=== PATIENT | male | born 1960 | race Caucasian/White ===

== ENCOUNTER 2016-11-16 07:13 | Outpatient (CLI) | payer OTHER | END 2016-11-16 07:14 | disposition home or self-care (01) | DX: C61 Malignant neoplasm of prostate (principal) ==

== ENCOUNTER 2017-03-02 11:19 | Outpatient (CLI) | payer OTHER ==
[2017-03-02 18:47] LABS: BASOPHILS # (AUTO) 0.1 10^3/uL (0.0-0.1); BASOPHILS % (AUTO) 0.8 %; EOSINOPHILS # (AUTO) 0.2 10^3/uL (0.0-0.7); HCT - HEMATOCRIT 47.8 % (42.0-52.0); HGB - HEMOGLOBIN 15.8 g/dL (14.0-18.0); LYMPHOCYTES # (AUTO) 3.2 10^3/uL (1.5-3.5); LYMPHOCYTES % (AUTO) 39.8 %; MEAN CORPUSCULAR HEMOGLOBIN 29.8 pg (27.0-31.0); MEAN CORPUSCULAR VOLUME 90.3 fL (80.0-94.0); MEAN PLATELET VOLUME 8.6 fL (7.4-11.4); MONOCYTES # (AUTO) 0.6 10^3/uL (0.0-1.0); MONOCYTES % (AUTO) 7.4 %; NEUTROPHILS # (AUTO) 3.9 10^3/uL (1.5-6.6); RED CELL DISTRIBUTION WIDTH 13.3 % (12.0-15.0)
[2017-03-02 19:10] LABS: ALBUMIN/GLOBULIN RATIO 1.3 (1.0-2.2); BILIRUBIN,TOTAL 0.5 mg/dL (0.2-1.0); BUN - BLOOD UREA NITROGEN 18 mg/dL (6-20); CALCIUM 8.9 mg/dL (8.5-10.3); CARBON DIOXIDE - CO2 25 mmol/L (21-32); CHLORIDE 106 mmol/L (101-111); CREATININE 0.7 mg/dL (0.6-1.2); GFR - MDRD 116 (>89); GLUCOSE 104 mg/dL (70-100); POTASSIUM 3.9 mmol/L (3.5-5.0); SODIUM 139 mmol/L (135-145); TOTAL PROTEIN 7.9 g/dL (6.7-8.2)
== END 2017-03-02 11:20 | disposition home or self-care (01) ==
LOC: LAB.F 11:19
PROVIDERS: ATTEND Internal Medicine
DX: F41.9 Anxiety disorder, unspecified (principal)
CPT/HCPCS: 36415; 80053; 82306; 84443; 85025

== ENCOUNTER 2017-04-05 07:26 | Outpatient (CLI) | payer OTHER | END 2017-04-05 07:27 | disposition home or self-care (01) | LOC: LAB.F 07:26 | PROVIDERS: ATTEND Internal Medicine | DX: C61 Malignant neoplasm of prostate (principal) | CPT/HCPCS: 36415; 84153 ==

== ENCOUNTER 2017-07-25 07:13 | Outpatient (CLI) | payer OTHER ==
[2017-07-25 10:51] LABS: PSA FREE 0.34 ng/mL (0.16-2.81)
[2017-07-25 10:53] LABS: PSA TOTAL 5.36 ng/mL (0.000-2.000)
== END 2017-07-25 07:14 | disposition home or self-care (01) ==
LOC: LAB.F 07:13
PROVIDERS: ATTEND Family Medicine
DX: C61 Malignant neoplasm of prostate (principal)
CPT/HCPCS: 36415; 84153; 84154

== ENCOUNTER 2017-10-31 11:23 | Outpatient (CLI) | payer OTHER ==
[2017-10-31 18:36] LABS: PSA FREE 0.53 ng/mL (0.16-2.81)
[2017-10-31 18:37] LABS: PSA TOTAL 8.93 ng/mL (0.000-2.000)
== END 2017-10-31 11:24 | disposition home or self-care (01) ==
LOC: LAB.F 11:23
PROVIDERS: ATTEND Family Medicine
DX: C61 Malignant neoplasm of prostate (principal)
CPT/HCPCS: 36415; 84154

== ENCOUNTER 2017-10-31 18:55 | Outpatient (CLI) | payer OTHER ==
--- NOTE | 2017-11-01 12:16 | XRAY Report ---
BILATERAL KNEES: 10/31/2017 COMPARISON STUDY: Left knee 07/14/2016. INDICATION: Bilateral knee pain. TECHNIQUE: Three views of each knee. FINDINGS: Normal alignment. No evidence of acute fracture. No effusion. No degenerative changes. IMPRESSION: NEGATIVE KNEES. TD: 11/01/2017 12:15 MTDD
== END 2017-10-31 18:56 | disposition home or self-care (01) ==
LOC: DI 18:55
PROVIDERS: ATTEND Family Medicine
DX: M25.561 Pain in right knee (principal); M25.562 Pain in left knee; C61 Malignant neoplasm of prostate
CPT/HCPCS: 36415; 73565; 84154

== ENCOUNTER 2018-01-06 11:47 | Outpatient (CLI) | payer OTHER | END 2018-01-06 11:48 | disposition home or self-care (01) | LOC: LAB 11:47 | PROVIDERS: ATTEND Urology | DX: C61 Malignant neoplasm of prostate (principal) | CPT/HCPCS: 36415; 84153 ==

== ENCOUNTER 2018-01-20 08:48 | Inpatient (IN) | payer OTHER ==
[2018-01-20] MEDS ORDERED: SODIUM CHLORIDE 0.9% 1,000 ML IV ONE (09:14)
--- NOTE | 2018-01-20 09:16 | ED Physician Documentation ---
History of Present Illness - Stated complaint Stated Complaint: FEVER/ACHES/LOW APPETITE - Chief complaint Chief Complaint: Fever - History obtained from History obtained from: Patient, Family - History of Present Illness Timing: How many days ago (3) - Additonal information Additional information: 57-year-old male has had a repeat biopsy done of his prostate at [facility] 4 days ago. He developed a fever the following day and chills and he has been in bed since. He has had some nausea he has not had any vomiting he has not had any diarrhea. He has been drinking less fluids than he was instructed. He has aches and all of his muscles. Review of Systems Constitutional: reports: Fever, Chills, Myalgias, Fatigue, Sweats Eyes: denies: Decreased vision Ears: denies: Ear pain Nose: denies: Rhinorrhea / runny nose, Congestion Throat: denies: Sore throat Cardiac: denies: Chest pain / pressure Respiratory: denies: Dyspnea, Cough GI: reports: Nausea. denies: Abdominal Pain, Vomiting, Diarrhea : denies: Dysuria, Frequency Skin: denies: Rash Musculoskeletal: denies: Neck pain, Back pain, Extremity pain PD PAST MEDICAL HISTORY - Past Medical History Cardiovascular: Hypertension Respiratory: None Endocrine/Autoimmune: None Musculoskeletal: Osteoarthritis - Present Medications Home Medications: Ambulatory Orders Medication Instructions Recorded Confirmed Cholecalciferol (Vitamin D3) 2,000 unit PO DAILY 01/20/18 01/20/18 [Vitamin D] Metoprolol Tartrate [Metoprolol 25 mg PO BID 01/20/18 01/20/18 Tartrate] Tamsulosin [Flomax] 0.4 mg PO BID 01/20/18 01/20/18 - Allergies Allergies/Adverse Reactions: Allergies Allergy/AdvReac Type Severity Reaction Status Date / Time No Known Drug Allergies Allergy Verified 01/20/18 09:01 PD ED PE NORMAL - Vitals Vital signs reviewed: Yes (tachy and hypertensive) - General General: Alert and oriented X 3, No acute distress, Well developed/nourished - HEENT HEENT: Atraumatic, PERRL, EOMI - Neck Neck: Supple, no meningeal sign - Cardiac Cardiac: No murmur, Other (tachy to 120) - Respiratory Respiratory: No respiratory distress, Clear bilaterally - Abdomen Abdomen: Soft, Non tender - Back Back: No CVA TTP, No spinal TTP - Derm Derm: Normal color, Warm and dry, No rash - Extremities Extremities: No deformity, No edema - Neuro Neuro: No motor deficit, No sensory deficit Eye Opening: Spontaneous Motor: Obeys Commands Verbal: Oriented GCS Score: 15 - Psych Psych: Normal mood, Normal affect Results - Vitals Vitals: Vital Signs - 24 hr 01/20/18 01/20/18 01/20/18 08:57 10:50 10:54 Temperature 36.6 C 37.4 C Heart Rate 119 H 103 H Respiratory 16 19 Rate Blood Pressure 142/87 H 98/53 L O2 Saturation 96 95 Oxygen O2 Source Room air - Labs Labs: Laboratory Tests 01/20/18 01/20/18 01/20/18 09:15 09:15 09:15 WBC 7.5 RBC 5.48 Hgb 16.4 Hct 47.7 MCV 86.9 MCH 29.9 MCHC 34.4 RDW 13.7 Plt Count 125 L MPV 6.9 L Neut # (Auto) 7.2 H Lymph # (Auto) 0.2 L Dent # (Auto) 0.1 Eos # (Auto) 0.0 Baso # (Auto) 0.0 Absolute Nucleated RBC 0.00 Nucleated RBC % 0.1 Sodium 130 L Potassium 3.2 L Chloride 99 L Carbon Dioxide 21 Anion Gap 10.0 BUN 13 Creatinine 1.1 Estimated GFR (MDRD) 69 L Glucose 139 H Lactic Acid Calcium 8.6 Total Bilirubin 1.9 H AST 91 H ALT 118 H Alkaline Phosphatase 102 Total Creatine Kinase CK-MB (CK-2) Troponin I < 0.04 Total Protein 8.5 H Albumin 4.1 Globulin 4.4 H Albumin/Globulin Ratio 0.9 L Lipase 20 L Urine Color Urine Clarity Urine pH Ur Specific [place] Urine Protein Urine Glucose (UA) Urine Ketones Urine Occult Blood Urine Nitrite Urine Bilirubin Urine Urobilinogen Ur Leukocyte Esterase Urine RBC Urine WBC Ur Squamous Epith Cells Urine Bacteria Urine Casts Ur Microscopic Review Urine Culture Comments 01/20/18 01/20/18 01/20/18 09:15 09:15 09:15 WBC RBC Hgb Hct MCV MCH MCHC RDW Plt Count MPV Neut # (Auto) Lymph # (Auto) Dent # (Auto) Eos # (Auto) Baso # (Auto) Absolute Nucleated RBC Nucleated RBC % Sodium Potassium Chloride Carbon Dioxide Anion Gap BUN Creatinine Estimated GFR (MDRD) Glucose Lactic Acid 1.7 Calcium Total Bilirubin AST ALT Alkaline Phosphatase Total Creatine Kinase 389 H CK-MB (CK-2) 1.1 Troponin I Total Protein Albumin Globulin Albumin/Globulin Ratio Lipase Urine Color Urine Clarity Urine pH Ur Specific [place] Urine Protein Urine Glucose (UA) Urine Ketones Urine Occult Blood Urine Nitrite Urine Bilirubin Urine Urobilinogen Ur Leukocyte Esterase Urine RBC Urine WBC Ur Squamous Epith Cells Urine Bacteria Urine Casts Ur Microscopic Review Urine Culture Comments 01/20/18 11:20 WBC RBC Hgb Hct MCV MCH MCHC RDW Plt Count MPV Neut # (Auto) Lymph # (Auto) Dent # (Auto) Eos # (Auto) Baso # (Auto) Absolute Nucleated RBC Nucleated RBC % Sodium Potassium Chloride Carbon Dioxide Anion Gap BUN Creatinine Estimated GFR (MDRD) Glucose Lactic Acid Calcium Total Bilirubin AST ALT Alkaline Phosphatase Total Creatine Kinase CK-MB (CK-2) Troponin I Total Protein Albumin Globulin Albumin/Globulin Ratio Lipase Urine Color DARK YELLOW Urine Clarity CLOUDY Urine pH 5.5 Ur Specific [place] >=1.030 H Urine Protein >=300 Urine Glucose (UA) 100 H Urine Ketones TRACE Urine Occult Blood LARGE H Urine Nitrite NEGATIVE Urine Bilirubin NEGATIVE Urine Urobilinogen 2 H Ur Leukocyte Esterase TRACE H Urine RBC 6-10 H Urine WBC 11-25 H Ur Squamous Epith Cells RARE Squamous Urine Bacteria Few Urine Casts 0-2 Granular Casts Ur Microscopic Review INDICATED Urine Culture Comments INDICATED Procedures - IVC sono (time) 0905 Bedside IVC sono: IVC measures (cm) (1.02), IVC collapsed c insp (cm) (complete) , Low CVP, Dehydration (est 1-2 liter deficit) PD MEDICAL DECISION MAKING - ED course Complexity details: reviewed old records, reviewed results, re-evaluated patient , considered differential, d/w patient, d/w family ED course: 57 y/o male with prostate cancer has had a recent biopsy and now has fever, chills, sweats and myalgias. He is tachy and appears weak on initial exam. He is volume depleted and saline is begun. Levaquin is given IV as well. The patient appears ill with SIRS criteria with tachycardia and hypotension and admission is sought. His LFT's are elevated and have not been so previously. He has had shaking chills and CK is added on. He is not tender in the RUQ on exam. The CK is mildly elevated consistent with his rigors and I suspect this is the reason for elevation in LFT's. Departure - Departure Disposition: 66 [facility] DC/Xfer Clinical Impression: Septicemia Urinary tract infection Qualifiers: Urinary tract infection type: site unspecified Hematuria presence: with hematuria Qualified Code(s): N39.0 - Urinary tract infection, site not specified Condition: Serious Discharge Date/Time: 01/20/18 14:24
[2018-01-20] MEDS ORDERED: levoFLOXacin 750 MG/150 ML 750 MG/150 ML BAG IV STA (09:28)
[2018-01-20] MEDS ORDERED: KETOROLAC 60 MG/2 ML VIAL IVP STA (09:29)
[2018-01-20 09:31] LABS: BASOPHILS % (AUTO) 0.3 %; HGB - HEMOGLOBIN 16.4 g/dL (14.0-18.0); LYMPHOCYTES # (AUTO) 0.2 10^3/uL (1.5-3.5); MEAN CORPUSCULAR HEMOGLOBIN 29.9 pg (27.0-31.0); MEAN CORPUSCULAR HGB CONC 34.4 g/dL (32.0-36.0); MEAN CORPUSCULAR VOLUME 86.9 fL (80.0-94.0); MEAN PLATELET VOLUME 6.9 fL (7.4-11.4); MONOCYTES # (AUTO) 0.1 10^3/uL (0.0-1.0); NEUTROPHILS # (AUTO) 7.2 10^3/uL (1.5-6.6); NEUTROPHILS % (AUTO) 96.7 %; PLT - PLATELET COUNT 125 10^3/uL (130-450); RED BLOOD COUNT 5.48 10^6/uL (4.70-6.10); RED CELL DISTRIBUTION WIDTH 13.7 % (12.0-15.0); WHITE BLOOD COUNT 7.5 x10^3/uL (4.8-10.8)
[2018-01-20 09:53] LABS: ALBUMIN 4.1 g/dL (3.2-5.5); ALBUMIN/GLOBULIN RATIO 0.9 (1.0-2.2); BILIRUBIN,TOTAL 1.9 mg/dL (0.2-1.0); CALCIUM 8.6 mg/dL (8.5-10.3); CREATININE 1.1 mg/dL (0.6-1.2); TOTAL PROTEIN 8.5 g/dL (6.7-8.2)
[2018-01-20] MEDS ORDERED: POTASSIUM BICARB 25 MEQ TABLET PO STA (09:57)
[2018-01-20 11:40] LABS: GLUCOSE, URINE (UA) 100 mg/dL (NEGATIVE); KETONES,URINE (UA) TRACE mg/dL (NEGATIVE); LEUKOCYTE ESTERASE, URINE TRACE (NEGATIVE); NITRITE,URINE NEGATIVE (NEGATIVE); OCCULT BLOOD,URINE LARGE (NEGATIVE); PH,URINE 5.5 PH (5.0-7.5); PROTEIN,URINE >=300 mg/dL (NEGATIVE); UROBILINOGEN,URINE 2 E.U./dL (NORMAL)
[2018-01-20 11:45] LABS: BILIRUBIN,URINE NEGATIVE (NEGATIVE); CLARITY,URINE CLOUDY (CLEAR); ICTOTEST,URINE NEGATIVE
[2018-01-20 11:56] LABS: BACTERIA,URINE Few /HPF (None Seen); CASTS, URINE 0-2 Granular Casts /LPF; SQUAMOUS EPITHELIAL CELL,UR RARE Squamous (<= Few)
[2018-01-20] MEDS ORDERED: ONDANSETRON ODT 4 MG TABLET TL PRN (12:25)
[2018-01-20] MEDS ORDERED: ONDANSETRON 4 MG/2 ML VIAL IVP PRN (12:25)
--- NOTE | 2018-01-20 12:34 | HISTORY & PHYSICAL EXAMINATION ---
Chief Complaint - Chief Complaint Chief Complaint: Fever and chills with rigors as well as N/V History of Present Illness - Admitted From Admitted From:: ER/HOme - History Obtained From [facility] History obtained from: patient and Dr. Hale Exam Limitations: none - History of Present Illness HPI Comment/Other: He had a rising PSA and ended up having a prostate biopsy at [facility] this week. Since that time he has started to feel badly. In the last few days he has had alessandro fever, chills, rigors. No bloody stool. No urgency frequency or dysuria. Nausea resulted in sharply reduced food and fluid intake. He asked his PCP for pain meds and antibiotics and was told to take some tylenol and see how he felt. He came to the emergency room where he is afebrile but tachycardic and blood pressure is starting to drop. He was initially in the 1teens and now he is 90 systolic. Lab work shows him to have an elevated white cell count. Elevated liver enzymes. Elevated white cell count and a positive urine with regards to infection. There is no abdominal complaints with this. Dr. Hale states there is no right upper quadrant pain. He is now admitted for sepsis, most likely from urologic source and possibly prostate History - Past Medical History Cardiovascular: reports: Hypertension Respiratory: reports: None Neuro: reports: None Endocrine/Autoimmune: reports: None GI: reports: None : reports: Other (organic erectile dysfunction. Prostate cancer is "being watched" after a diagnosis and biopsy in 2014. Repeat 10/2015 shows mamta 3+3 of 1/2 cores in right apex. AUA score is 13/35. PSA this last month was >5. Went for prostate biopsy again earlier this week. ) Psych: reports: Anxiety Musculoskeletal: reports: Osteoarthritis, Other (left medial meniscus tear hx, patellorfemoral disorder, right lateral epicondylitis, left shoulder pain) Derm: reports: Other (lipoma left chest wall) Other Past Medical History: Diagnosed with prostate cancer. - Past Surgical History /[employer]: reports: Other (prostate biopsy x 3. ) - Family & Social History Family History Comment/Other: His mom at age 72 after a stroke. Dad at age 76 after getting infection in his leg, and having it cut off but he still anyway. 2 brothers still live in [facility] and he has not seen him in decade so he does know how they are. He has 1 child in [place] is healthy Living arrangement: At home Living Situation: With spouse/s.o. Social History Notes: From [place]. He lived in [facility]. Has been in the [place] for 19 years. He came over because the economy was bad and he was never able to get work. 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 He was laid off 2 months ago because work was slow. He has been living here on [facility] for the last 12 years.Speaks only Wallisian. Former smoker who quit in 2009 and started in 1972. No hx of alcohol abuse. Lately his knee and shoulder pain make it difficult to go up and down stairs all the time. No hx of recreational substance abuse. He is from his first . He had one child with her. They still live in [place]. He has been to his second for 8 years. They have no children. - Substance History Use: Uses substance without health or social issues: NONE Abuse: Recurrent use of substance despite neg consequences: NONE Dependence: Experiences withdrawal or developed tolerances: NONE - POLST Patient has POLST: No POLST Status: Full Code Meds/Allgy - Home Medications Home Medications: Ambulatory Orders Medication Instructions Recorded Confirmed Cholecalciferol (Vitamin D3) 2,000 unit PO DAILY 01/20/18 01/20/18 [Vitamin D] Metoprolol Tartrate [Metoprolol 25 mg PO BID 01/20/18 01/20/18 Tartrate] Tamsulosin [Flomax] 0.4 mg PO BID 01/20/18 01/20/18 - Allergies Allergies/Adverse Reactions: Allergies Allergy/AdvReac Type Severity Reaction Status Date / Time No Known Drug Allergies Allergy Verified 01/20/18 09:01 Review of Systems - Constitutional Constitutional: reports: Fatigue, Fever, Chills, Malaise, Weakness, Poor appetite - Eyes Eyes: denies: Pain, Irritation, Amaurosis, Blurred vision, Field loss - Ears, Nose & Throat Ears, Nose & Throat: denies: Ear pain, Hearing loss, Hearing aids, Nasal obstruction, Nasal congestion, Postnasal drainage, Sore throat - Cardiovascular Cariovascular: denies: Palpitations, Chest pain, Lightheadedness, Syncope, Exertional dyspnea, Decr. exercise tolerance - Respiratory Respiratory: denies: Cough, Sputum production, Wheezing, Hemoptysis, SOB at rest , SOB with exertion - Gastrointestinal Gastrointestinal: denies: Abdominal pain, Abdominal distention, Constipation, Change in bowel habits - Musculoskeletal Musculoskeletal: reports: Joint pain (especially in knees, chronic) - Integumentary Integumentary: reports: Lumps (left chest wall). denies: Rash, Lesions - Neurological Neurological: reports: General weakness, Headache, Dizziness. denies: Focal weakness, Numbness, Memory problems - Psychiatric Psychiatric: reports: Anxiety. denies: Depression - Endocrine Endocrine: denies: Polyuria, Polydypsia, Polyphagia - Hematologic/Lymphatic Hematologic/Lymphatic: denies: Anemia, Bruising, Petechiae Exam - Vital Signs Reviewed Vital Signs: Yes Vital Signs: Vital Signs x48h Temp Pulse Resp BP Pulse Ox 01/20/18 10:54 98/53 L 01/20/18 10:50 37.4 C 103 H 19 95 01/20/18 08:57 36.6 C 119 H 16 142/87 H 96 - Physical Exam General Appearance: positive: No acute distress, Alert, Other (middle aged male with long salt and pepper hair and sow.) Eyes Bilateral: positive: PERRL, EOMI ENT: positive: Dry mucous membranes Neck: positive: No JVD. negative: Stiff neck, Carotid bruit Respiratory: positive: Chest non-tender. negative: Wheezes, Rales, Rhonchi Cardiovascular: positive: Regular rate & rhythm. negative: Systolic murmur, Gallop/S4, Friction rub Peripheral Pulses: positive: 2+ Abdomen: positive: Non-tender, No organomegaly, Nml bowel sounds, No distention Skin: positive: Warm, Dry. negative: Diaphoresis Extremities: positive: Non-tender, Full ROM, No pedal edema Neurologic/Psychiatric: positive: Oriented x3, CN's nml (2-12), Motor nml Conclusion/Plan - Problem List (1) Sepsis associated hypotension Conclusion/Plan: mosts likely source is the prostate and recent biopsy but the abnormal LFTs do give pause. Exam neg for cholecystitis Plan: Admit to inpatient status 3 liters of NS at 200 cc/hr Check lactic acid q3 x 3 Continue levaquin started in ER. Review blood and urine cultures and adjust abx as needed See #3. (2) Urinary tract infection Conclusion/Plan: from prostatitis and biopsy. has a hx of prostate cancer. Plan: levaquin IV continue flomax. Qualifiers: Urinary tract infection type: site unspecified Hematuria presence: with hematuria Qualified Code(s): N39.0 - Urinary tract infection, site not specified; R31.9 - Hematuria, unspecified; R31.9 - Hematuria, unspecified (3) Abnormal LFTs (liver function tests) Conclusion/Plan: check hepatitis panel check US of abd (4) Essential (primary) hypertension Conclusion/Plan: hold his ususal home meds of metoprolol for now. he's hypotensive. will resume once BP stable but will keep in mind he may develop rebound tachycardia off the meds. (5) Hypokalemia Conclusion/Plan: and hyponatremia from from intravascular depletion. Supplement w po K and IV NS. recheck in am. (6) Prostate cancer Conclusion/Plan: T1c. Mamta 3+3. Being followed by Urology. (7) Headache Conclusion/Plan: not usually a problem and associated with his fever, rigos. has nausea and emesis with it. will use low dose MS to help with the pain. Qualifiers: Headache type: unspecified - Lab Results Fish Bones: 01/20/18 09:15 01/20/18 09:15 Core Measures - Anticipated LOS I expect patient to be DC'd or transferred within 96 hours.: Yes - DVT/VTE - Prophylaxis VTE/DVT Device ordered at admit?: Yes
[2018-01-20] MEDS: ENOXAPARIN 40 MG/0.4 ML SYRINGE SUBQ SCH (14:55)
[2018-01-20] MEDS: SODIUM CHLORIDE 0.9% 1,000 ML IV SCH ×2 (14:56→19:37)
--- NOTE | 2018-01-20 16:25 | Ultrasound Report ---
COMPLETE ABDOMINAL ULTRASOUND: 01/20/2018 INDICATION: Abnormal colon LFTs. TECHNIQUE: Real-time scanning was performed with maintenance representative static images obtained. FINDINGS: The liver measures 18 cm. Hepatic echogenicity is mildly increased, suspicious for mild fatty infiltration. No focal parenchymal lesion or intrahepatic biliary dilatation is present. The common bile duct measures 5 mm. The pancreas is obscured by bowel gas. The gallbladder demonstrates adenomyomatosis of the gallbladder wall, but no evidence of cholelithiasis, wall thickening, or pericholecystic fluid. The kidneys are normal, with the right measuring 11.7 cm, and the left measuring 10.5 cm. The spleen measures 11.7 cm, and demonstrates normal echotexture. The abdominal aorta is normal in caliber throughout. The inferior vena cava is unremarkable. No free fluid is present. IMPRESSION: MILD FATTY INFILTRATION OF THE LIVER. NO EVIDENCE OF CHOLELITHIASIS OR BILIARY OBSTRUCTION. TD: 01/20/2018 13:56
[2018-01-20] MEDS: SODIUM CHLORIDE FLUSH 0.9% 10 ML SYRINGE IVP SCH (17:52)
[2018-01-20] MEDS: MORPHINE 2 MG/ML SYRINGE IVP PRN (17:52)
[2018-01-20] MEDS: METOPROLOL TARTRATE 25 MG TABLET PO SCH (22:15)
[2018-01-20] MEDS: PIPERACILLIN/TAZOBACTAM 3.375 GM in SODIUM CHLORIDE 0.9% MINIBAG 100 ML IV SCH (22:16)
[2018-01-21] MEDS: HYDROcod/ACETAM 5/325 MG TABLET PO PRN ×2 (00:24→06:08)
[2018-01-21] MEDS ORDERED: ACETAMINOPHEN 325 MG TABLET PO PRN (00:58)
[2018-01-21] MEDS: SODIUM CHLORIDE 0.9% 1,000 ML IV SCH (01:02)
[2018-01-21] MEDS: SODIUM CHLORIDE FLUSH 0.9% 10 ML SYRINGE IVP SCH ×3 (01:52→18:07)
[2018-01-21] MEDS: PIPERACILLIN/TAZOBACTAM 3.375 GM in SODIUM CHLORIDE 0.9% MINIBAG 100 ML IV SCH ×4 (04:50→22:15)
[2018-01-21 06:15] LABS: BASOPHILS % (AUTO) 0.7 %; EOSINOPHILS % (AUTO) 0.1 %; HGB - HEMOGLOBIN 13.8 g/dL (14.0-18.0); LYMPHOCYTES # (AUTO) 0.8 10^3/uL (1.5-3.5); LYMPHOCYTES % (AUTO) 11.7 %; MEAN CORPUSCULAR HEMOGLOBIN 29.5 pg (27.0-31.0); MEAN CORPUSCULAR HGB CONC 33.5 g/dL (32.0-36.0); MEAN CORPUSCULAR VOLUME 87.9 fL (80.0-94.0); MEAN PLATELET VOLUME 7.8 fL (7.4-11.4); MONOCYTES # (AUTO) 0.3 10^3/uL (0.0-1.0); NEUTROPHILS # (AUTO) 5.5 10^3/uL (1.5-6.6); NEUTROPHILS % (AUTO) 82.5 %; PLT - PLATELET COUNT 86 10^3/uL (130-450); RED CELL DISTRIBUTION WIDTH 13.8 % (12.0-15.0); WHITE BLOOD COUNT 6.7 x10^3/uL (4.8-10.8)
[2018-01-21 06:37] LABS: CALCIUM 7.4 mg/dL (8.5-10.3); CREATININE 0.9 mg/dL (0.6-1.2)
[2018-01-21] MEDS: levoFLOXacin 500 MG/100 ML 500 MG/100 ML BAG IV SCH (09:29)
[2018-01-21] MEDS: ENOXAPARIN 40 MG/0.4 ML SYRINGE SUBQ SCH (09:37)
[2018-01-21] MEDS: TAMSULOSIN 0.4 MG CAPSULE PO SCH (09:38)
[2018-01-21] MEDS: METOPROLOL TARTRATE 25 MG TABLET PO SCH ×2 (09:39→21:02)
[2018-01-21] MEDS: POLYETHYLENE GLYCOL 3350 17 GM PACKET PO SCH (09:39)
[2018-01-21] MEDS ORDERED: IOPAMIDOL-300 100 ML VIAL ONE (10:16)
[2018-01-21] MEDS ORDERED: IOPAMIDOL-300 100 ML VIAL IVP ONE (10:39)
[2018-01-21] MEDS ORDERED: ACETAMINOPHEN 325 MG TABLET PO SCH (11:00)
--- NOTE | 2018-01-21 11:00 | PROVIDER PROGRESS NOTE ---
Subjective - Prog Note Date Prog Note Date: 01/21/18 Prog Note Time: 10:58 - Subjective Subjective: he's still having high temperatures w concomittant body aches, fatigue, joint pain. no diarrhea, no cough, no abd pain Current Medications - Current Medications Current Medications: Active Medications Acetaminophen (Tylenol) 500 mg PO Q6H [facility] Hydrocodone Bitart/Acetaminophen ([place] 5/325) 1 tab PO Q4HR PRN PRN Reason: Pain 5 to 7 Last Admin: 01/21/18 06:08 Dose: 1 tab Enoxaparin Sodium (Lovenox) 40 mg SUBQ DAILY [facility] Last Admin: 01/21/18 09:37 Dose: Not Given Levofloxacin (Levaquin 500 Mg/100 Ml) 500 mg in 100 mls @ 100 mls/hr IV Q24H [facility] Last Admin: 01/21/18 09:29 Dose: 100 mls/hr Piperacillin Sod/Tazobactam (Sod 3.375 gm/ Sodium Chloride) 100 mls @ 200 mls/ hr IV Q6H [facility] Last Infusion: 01/21/18 06:09 Dose: Infused Ibuprofen (Motrin) 600 mg PO Q6H [facility] Metoprolol Tartrate (Lopressor) 25 mg PO BID [facility] Last Admin: 01/21/18 09:39 Dose: 25 mg Morphine Sulfate (Morphine) 2 mg IVP Q2H PRN PRN Reason: PAIN Last Admin: 01/20/18 17:52 Dose: 2 mg Ondansetron HCl (Zofran Inj) 4 mg IVP Q6HR PRN PRN Reason: Nausea / Vomiting Last Admin: 01/20/18 16:33 Dose: 4 mg Ondansetron HCl (Zofran Odt) 4 mg TL Q6HR PRN PRN Reason: Nausea / Vomiting Polyethylene Glycol (Miralax) 17 gm PO DAILY [facility] Last Admin: 01/21/18 09:39 Dose: Not Given Sodium Chloride (Normal Saline Flush 0.9%) 10 ml IVP PRN PRN PRN Reason: NEEDED PER PROVIDER ORDERS Sodium Chloride (Normal Saline Flush 0.9%) 10 ml IVP 0100,0900,1700 [facility] Last Admin: 01/21/18 09:36 Dose: 10 ml Tamsulosin HCl (Flomax) 0.4 mg PO DAILY [facility] Last Admin: 01/21/18 09:38 Dose: 0.4 mg Cholecalciferol (Vitamin D3) [Vitamin D] 2,000 unit PO DAILY 01/20/18 Metoprolol Tartrate [Metoprolol Tartrate] 25 mg PO BID 01/20/18 Tamsulosin [Flomax] 0.4 mg PO BID 01/20/18 My Active Orders 01/20/18 12:25 Activity Orders [RC] Routine IO [RC] IOSHIFT Initiate Bowel Care Protocol [RC] .protocol Initiate Line Care Protocol [RC] .protocol Initiate Personal Care Protoco [RC] .protocol Oxygen Therapy [RC] Routine Vital Signs [RC] Q4HR HYDROcod/ACETAM 5/325 [[place] 5/325] 1 tab PO Q4HR PRN Ondansetron Inj [Zofran Inj] 4 mg IVP Q6HR PRN Ondansetron Odt [Zofran Odt] 4 mg TL Q6HR PRN Sodium Chloride Flush 0.9% [Normal Saline Flush 0.9%] 10 ml IVP PRN PRN Code Status [OTHERS] Routine Condition of Patient [OTHERS] Routine DVT Prophylaxis [OTHERS] Routine 01/20/18 12:26 IV Insert [RC] .ONCE 01/20/18 14:46 Nutrition Consult [CONS] Routine 01/20/18 15:23 HEPATITIS ACUTE PANEL W CONF [REFLAB] Routine 01/20/18 16:42 Morphine Inj [Morphine] 2 mg IVP Q2H PRN 01/20/18 17:00 Sodium Chloride Flush 0.9% [Normal Saline Flush 0.9%] 10 ml IVP 0100,0900, 1700 01/20/18 21:00 Metoprolol Tartrate [Lopressor] 25 mg PO BID 01/21/18 08:20 NPO [DIET] 01/21/18 09:00 Polyethylene Glycol 3350 [Miralax] 17 gm PO DAILY Tamsulosin [Flomax] 0.4 mg PO DAILY 01/21/18 10:00 levoFLOXacin 500 MG/100 ML [Levaquin 500 mg/100 ml] 500 mg in 100 ml IV Q24H 01/21/18 10:40 Pelvis W/ [CT] Routine 01/21/18 11:00 Ibuprofen [Motrin] 600 mg PO Q6H 01/21/18 14:00 Acetaminophen [Tylenol] 500 mg PO Q6H 01/22/18 05:00 BMP - BASIC METABOLIC PANEL [CHEM] DAILYLAB CBC - COMP BLD CT W/AUTO DIFF [HEME] DAILYLAB 01/23/18 05:00 BMP - BASIC METABOLIC PANEL [CHEM] DAILYLAB CBC - COMP BLD CT W/AUTO DIFF [HEME] DAILYLAB Objective - Vital Signs/Intake & Output Reviewed Vital Signs: Yes Vital Signs: Vital Signs x48h Temp Pulse Resp BP BP Pulse Ox 01/21/18 09:40 37.2 C 01/21/18 09:39 138/76 H 01/21/18 08:10 37.6 C H 01/21/18 07:27 38.9 C H 108 H 20 138/76 H 95 01/21/18 06:35 38.5 C H 01/21/18 05:00 37.6 C H 90 16 150/80 H 98 Intake & Output: Intake & Output 01/18/18 01/19/18 01/20/18 01/21/18 23:59 23:59 23:59 23:59 Intake Total 9518.949 2781 Output Total 75 775 Balance 249.046 4964 - Objective General Appearance: positive: Alert, Mild distress, Other (diaphoretic, fatigued appearing) Eyes Bilateral: positive: PERRL, EOMI ENT: positive: Dry mucous membranes Neck: positive: No JVD. negative: Stiff neck, Carotid bruit Respiratory: positive: Chest non-tender. negative: Wheezes, Rales, Rhonchi Cardiovascular: positive: Regular rate & rhythm, Tachycardia. negative: Gallop/ S4, Friction rub Abdomen: positive: Non-tender, No organomegaly, Nml bowel sounds, No distention Skin: positive: Warm (very hot to touch), Diaphoresis Extremities: positive: Non-tender, Full ROM, No pedal edema Neurologic/Psychiatric: positive: Oriented x3, CN's nml (2-12), Motor nml - Lab Results Fish Bones: 01/21/18 05:50 01/21/18 05:50 Other Labs: Lab Results x24hrs 01/21/18 01/21/18 01/20/18 Range/Units 05:50 05:50 15:23 WBC 6.7 (4.8-10.8) x10^3/uL RBC 4.70 (4.70-6.10) 10^6/uL Hgb 13.8 L (14.0-18.0) g/dL Hct 41.3 L (42.0-52.0) % MCV 87.9 (80.0-94.0) fL MCH 29.5 (27.0-31.0) pg MCHC 33.5 (32.0-36.0) g/dL RDW 13.8 (12.0-15.0) % Plt Count 86 L (130-450) 10^3/uL MPV 7.8 (7.4-11.4) fL Neut # (Auto) 5.5 (1.5-6.6) 10^3/uL Lymph # (Auto) 0.8 L (1.5-3.5) 10^3/uL [place] # (Auto) 0.3 (0.0-1.0) 10^3/uL Eos # (Auto) 0.0 (0.0-0.7) 10^3/uL Baso # (Auto) 0.0 (0.0-0.1) 10^3/uL Absolute Nucleated RBC 0.00 x10^3/uL Nucleated RBC % 0.0 /100WBC Sodium 133 L (135-145) mmol/L Potassium 3.6 (3.5-5.0) mmol/L Chloride 105 (101-111) mmol/L Carbon Dioxide 19 L (21-32) mmol/L Anion Gap 9.0 (6-13) BUN 15 (6-20) mg/dL Creatinine 0.9 (0.6-1.2) mg/dL Estimated GFR (MDRD) 86 L (>89) Glucose 110 H (70-100) mg/dL Lactic Acid 1.9 (0.5-2.2) mmol/L Calcium 7.4 L (8.5-10.3) mg/dL ABX Reporting Has patient been on IV antibiotics over the past 48 hours?: Yes Assessment/Plan - Problem List (1) Sepsis associated hypotension Impression: Hypotension has resolved. But still with high fevers. mosts likely source is the prostate and recent biopsy but the abnormal LFTs do give pause. Exam neg for cholecystitis Plan: Admitted to inpatient status 3 liters of NS at 200 cc/hr Check lactic acid q3 x 3 and all have been negative Continue levaquin started in ER. Blood cultures with GNB so on correct abx Change APAP to APAP separate from opiate and add Ibuprofen. Give one or the other every 3 hours for the fever. See #3. (2) Urinary tract infection Conclusion/Plan: from prostatitis and biopsy. has a hx of prostate cancer. Plan: levaquin IV, Day #[address] pelvis, looking for pelvic disease p biopsy continue flomax. Qualifiers: Urinary tract infection type: site unspecified Hematuria presence: with hematuria Qualified Code(s): N39.0 - Urinary tract infection, site not specified; R31.9 - Hematuria, unspecified; R31.9 - Hematuria, unspecified (3) Abnormal LFTs (liver function tests) Conclusion/Plan: hepatitis panel drawn and results pending US of abd with mild fatty liver,no masses (4) Essential (primary) hypertension Conclusion/Plan: BP is now up to 138-150 systolic and he's tachy. resumed his betablocker lat night and still tachy from fever. will increase to 50 mg po bid if still tachy this afternoon. (5) Hypokalemia Conclusion/Plan: and hyponatremia from from intravascular depletion. Potassium now nml at 3.6 but Na still low at 133. Supplement w po K and IV NS as needed. recheck in am. (6) Prostate cancer Conclusion/Plan: T1c. [place] 3+3. Being followed by Urology. (7) Headache Conclusion/Plan: not usually a problem and associated with his fever, rigos. has nausea and emesis with it. will use low dose MS to help with the pain. Qualifiers: Headache type: unspecified (2) Urinary tract infection Qualifiers: Qualified Code(s): N39.0 - Urinary tract infection, site not specified; R31.9 - Hematuria, unspecified; R31.9 - Hematuria, unspecified
[2018-01-21] MEDS: IBUPROFEN 600 MG TABLET PO SCH ×3 (11:01→22:15)
[2018-01-21] MEDS: ACETAMINOPHEN 500 MG TABLET PO SCH ×2 (14:08→21:02)
[2018-01-21 16:12] LABS: HEPATITIS A IGM NON-REACTIVE (NON-REACTIVE); HEPATITIS B CORE ANTIBODY IGM NON-REACTIVE (NON-REACTIVE); HEPATITIS B SURFACE ANTIGEN NON-REACTIVE (NON-REACTIVE); HEPATITIS C ANTIBODY NON-REACTIVE (NON-REACTIVE)
--- NOTE | 2018-01-21 19:49 | CT Preliminary Report ---
Exam: CT PELVIS W/ IMPRESSION: 1. No abscess or perforation noted. 2. Marked prostate and seminal vesicle enlargement with adjacent stranding. Differential includes pro statitis versus post therapy inflammation. 3. Mild to moderate rectal wall thickening with perirectal and presacral stranding. Correlate for his tory of recent treatment of prostate carcinoma. In the absence of recent treatment, prostatitis is on the differential. 4. No bulky adenopathy in the pelvis. No osteoblastic process lesions are noted. [facility] SITE ID: [id number]
--- NOTE | 2018-01-21 20:18 | CT Report ---
EXAM: CT PELVIS EXAM DATE: 01/21/2018 10:42 AM. CLINICAL HISTORY: Bacteremia, prostate cancer. COMPARISONS: None. TECHNIQUE: Routine helical CT imaging was performed through the pelvis. IV contrast: ISOVUE 300 100m L. Enteric contrast: No. Reconstructions: Coronal and sagittal. In accordance with CT protocol optimization, one or more of the following dose reduction techniques w ere utilized for this exam: automated exposure control, adjustment of mA and/or KV based on patient s ize, or use of iterative reconstructive technique. FINDINGS: Visualized Abdominal Organs: Normal. Peritoneal Cavity/Bowel: No pelvic adenopathy, mass or collection. No pneumoperitoneum in the pelvis. Occasional sigmoid diverticula noted without inflammation. Moderate rectal wall thickening best seen on image 34 without a focal mass. Presacral and perirectal stranding is noted. No bowel obstruction. Pelvic Organs: Marked prostate and seminal vesicle enlargement. Fat stranding is noted surrounding th e prostate gland and seminal vesicles. Presacral stranding is described above. Bladder is incompletel y distended with mild fast running adjacent to the bladder wall and mild bladder wall thickening. No bladder stones or focal bladder mass. Vasculature: No aneurysms or other significant abnormality. Bones: No osteoblastic or osteolytic lesions are present. Moderate L5-S1 degenerative disk disease. Other: None. IMPRESSION: 1. No abscess or perforation noted. 2. Marked prostate and seminal vesicle enlargement with adjacent stranding. Differential includes pro statitis versus post therapy inflammation. 3. Mild to moderate rectal wall thickening with perirectal and presacral stranding. Correlate for his tory of recent treatment of prostate carcinoma. In the absence of recent treatment, prostatitis is on the differential. 4. No bulky adenopathy in the pelvis. No osteoblastic or osteolytic lesions are noted. [facility] Referring Provider Line: [phone] SITE ID: [id number]
[2018-01-21] MEDS: SODIUM CHLORIDE FLUSH 0.9% 10 ML SYRINGE IVP PRN (22:15)
[2018-01-22] MEDS: ACETAMINOPHEN 500 MG TABLET PO SCH ×4 (02:04→21:02)
[2018-01-22] MEDS: SODIUM CHLORIDE FLUSH 0.9% 10 ML SYRINGE IVP SCH ×3 (04:56→17:30)
[2018-01-22] MEDS: IBUPROFEN 600 MG TABLET PO SCH ×4 (04:56→22:34)
[2018-01-22] MEDS: PIPERACILLIN/TAZOBACTAM 3.375 GM in SODIUM CHLORIDE 0.9% MINIBAG 100 ML IV SCH ×2 (04:56→09:45)
[2018-01-22 05:57] LABS: BASOPHILS % (AUTO) 0.7 %; HGB - HEMOGLOBIN 13.1 g/dL (14.0-18.0); LYMPHOCYTES # (AUTO) 0.6 10^3/uL (1.5-3.5); MEAN CORPUSCULAR HEMOGLOBIN 29.1 pg (27.0-31.0); MEAN CORPUSCULAR HGB CONC 33.1 g/dL (32.0-36.0); MEAN CORPUSCULAR VOLUME 87.8 fL (80.0-94.0); MEAN PLATELET VOLUME 8.4 fL (7.4-11.4); MONOCYTES # (AUTO) 0.4 10^3/uL (0.0-1.0); MONOCYTES % (AUTO) 9.3 %; NEUTROPHILS # (AUTO) 2.9 10^3/uL (1.5-6.6); PLT - PLATELET COUNT 84 10^3/uL (130-450); RED BLOOD COUNT 4.49 10^6/uL (4.70-6.10); RED CELL DISTRIBUTION WIDTH 13.9 % (12.0-15.0)
[2018-01-22 05:59] LABS: CREATININE 0.8 mg/dL (0.6-1.2)
--- NOTE | 2018-01-22 07:41 | PROVIDER PROGRESS NOTE ---
Subjective - Prog Note Date Prog Note Date: 01/22/18 Prog Note Time: 13:54 - Subjective Pt reports feeling: Improved Subjective: he has stopped having fevers. up in chair. mild cough every now and then. mild shooting pain in lower suprapubic area. urine is brown. eating. Current Medications - Current Medications Current Medications: Active Medications Acetaminophen (Tylenol) 500 mg PO Q6H [facility] Last Admin: 01/22/18 02:04 Dose: 500 mg Enoxaparin Sodium (Lovenox) 40 mg SUBQ DAILY [facility] Last Admin: 01/21/18 09:37 Dose: Not Given Levofloxacin (Levaquin 500 Mg/100 Ml) 500 mg in 100 mls @ 100 mls/hr IV Q24H [facility] Last Infusion: 01/21/18 10:30 Dose: Infused Piperacillin Sod/Tazobactam (Sod 3.375 gm/ Sodium Chloride) 100 mls @ 200 mls/ hr IV Q6H [facility] Last Infusion: 01/22/18 05:30 Dose: Infused Ibuprofen (Motrin) 600 mg PO Q6H [facility] Last Admin: 01/22/18 04:56 Dose: 600 mg Metoprolol Tartrate (Lopressor) 25 mg PO BID [facility] Last Admin: 01/21/18 21:02 Dose: 25 mg Morphine Sulfate (Morphine) 2 mg IVP Q2H PRN PRN Reason: PAIN Last Admin: 01/20/18 17:52 Dose: 2 mg Ondansetron HCl (Zofran Inj) 4 mg IVP Q6HR PRN PRN Reason: Nausea / Vomiting Last Admin: 01/20/18 16:33 Dose: 4 mg Ondansetron HCl (Zofran Odt) 4 mg TL Q6HR PRN PRN Reason: Nausea / Vomiting Oxycodone HCl (Roxicodone) 5 mg PO Q4HR PRN PRN Reason: PAIN Polyethylene Glycol (Miralax) 17 gm PO DAILY [facility] Last Admin: 01/21/18 09:39 Dose: Not Given Sodium Chloride (Normal Saline Flush 0.9%) 10 ml IVP PRN PRN PRN Reason: NEEDED PER PROVIDER ORDERS Last Admin: 01/21/18 22:15 Dose: 10 ml Sodium Chloride (Normal Saline Flush 0.9%) 10 ml IVP 0100,0900,1700 [facility] Last Admin: 01/22/18 04:56 Dose: 10 ml Tamsulosin HCl (Flomax) 0.4 mg PO DAILY [facility] Last Admin: 01/21/18 09:38 Dose: 0.4 mg Cholecalciferol (Vitamin D3) [Vitamin D] 2,000 unit PO DAILY 01/20/18 Metoprolol Tartrate [Metoprolol Tartrate] 25 mg PO BID 01/20/18 Tamsulosin [Flomax] 0.4 mg PO BID 01/20/18 Objective - Vital Signs/Intake & Output Reviewed Vital Signs: Yes Vital Signs: Vital Signs x48h Temp Pulse Resp BP Pulse Ox 01/22/18 05:05 37.0 C 61 20 110/69 97 Intake & Output: Intake & Output 01/19/18 01/20/18 01/21/18 01/22/18 23:59 23:59 23:59 23:59 Intake Total 7737.081 9096 300 Output Total 75 1400 275 Balance 097.574 7232 25 - Objective General Appearance: positive: No acute distress, Alert Eyes Bilateral: positive: PERRL, EOMI ENT: positive: Other (poor teeth) Neck: positive: No JVD. negative: Stiff neck, Carotid bruit Respiratory: positive: Chest non-tender. negative: Wheezes, Rales, Rhonchi Cardiovascular: positive: Regular rate & rhythm. negative: Systolic murmur, Gallop/S4, Friction rub Abdomen: positive: Non-tender, No organomegaly, Nml bowel sounds, No distention Rectal: positive: Other (denies pain with BM) Skin: positive: Warm, Dry Extremities: positive: Full ROM, No pedal edema Neurologic/Psychiatric: positive: Oriented x3, CN's nml (2-12), Motor nml - Lab Results Fish Bones: 01/22/18 05:00 01/22/18 05:00 Other Labs: Lab Results x24hrs 01/22/18 01/22/18 01/20/18 Range/Units 05:00 05:00 15:23 WBC 4.0 L (4.8-10.8) x10^3/uL RBC 4.49 L (4.70-6.10) 10^6/uL Hgb 13.1 L (14.0-18.0) g/dL Hct 39.5 L (42.0-52.0) % MCV 87.8 (80.0-94.0) fL MCH 29.1 (27.0-31.0) pg MCHC 33.1 (32.0-36.0) g/dL RDW 13.9 (12.0-15.0) % Plt Count 84 L (130-450) 10^3/uL MPV 8.4 (7.4-11.4) fL Neut # (Auto) 2.9 (1.5-6.6) 10^3/uL Lymph # (Auto) 0.6 L (1.5-3.5) 10^3/uL [place] # (Auto) 0.4 (0.0-1.0) 10^3/uL Eos # (Auto) 0.0 (0.0-0.7) 10^3/uL Baso # (Auto) 0.0 (0.0-0.1) 10^3/uL Absolute Nucleated RBC 0.00 x10^3/uL Nucleated RBC % 0.1 /100WBC Sodium 135 (135-145) mmol/L Potassium 3.5 (3.5-5.0) mmol/L Chloride 106 (101-111) mmol/L Carbon Dioxide 23 (21-32) mmol/L Anion Gap 6.0 (6-13) BUN 15 (6-20) mg/dL Creatinine 0.8 (0.6-1.2) mg/dL Estimated GFR (MDRD) 99 (>89) Glucose 101 H (70-100) mg/dL Calcium 8.0 L (8.5-10.3) mg/dL Hepatitis A IgM Ab NON-REACTIVE (NON-REACTIVE) Hep Bs Antigen NON-REACTIVE (NON-REACTIVE) Hep B Core IgM Ab NON-REACTIVE (NON-REACTIVE) Hepatitis C Antibody NON-REACTIVE (NON-REACTIVE) Hep C Ab Signal/Cutoff 0.00 (<1.00) ABX Reporting Has patient been on IV antibiotics over the past 48 hours?: Yes Assessment/Plan - Problem List (1) Sepsis associated hypotension Impression: Hypotension has resolved. High fevers were still present day after admission and started on round the clock tylenol and ibuprofen with opiate as separate dosing to avoid tylenol toxicity. mosts likely source is the prostate and recent biopsy but the abnormal LFTs do give pause. Exam neg for cholecystitis CT of pelvis done yesterday shows early changes of perirectal abcess and/or prostatitis. Levaquin started on admission and zosyn added later that day. Blood and urine cultures from 1st day are positive for E coli. This E coli is resistant to both Zosyn and levaquin Second set of blood cultures on both abx were (+) for gram neg bacilli but no ID yet Plan: Admitted to inpatient status 3 liters of NS at 200 cc/hr have been stopped. Encouraged to get out of bed and walk in room. Checked lactic acid q3 x 3 and all have been negative Will change to ertapenem 1 gram daily since E coli sensitive to that. When he is transitioned to oral meds, I can used Bactrim See #3. (2) Urinary tract infection Conclusion/Plan: from prostatitis and biopsy. has a hx of prostate cancer. I did call his Urologist Dr. Velez @ [phone] and spoke to his resident aircraft load controller. They don't recommend changing anything for now. If he doesn't respond, repeat the CT in 2-3 days and call them back. They may want the patient in transfer.For right now they feel he can stay here. Plan: levaquin IV, Day #3. Zosyn Day #2 are to be stopped change to ertepenam. CT pelvis, looking for pelvic disease p biopsy, showed early changed of prostatitis and/or perirectal abcess continue flomax. Qualifiers: Urinary tract infection type: site unspecified Hematuria presence: with hematuria Qualified Code(s): N39.0 - Urinary tract infection, site not specified; R31.9 - Hematuria, unspecified; R31.9 - Hematuria, unspecified (3) Abnormal LFTs (liver function tests) Conclusion/Plan: hepatitis panel negative for viral hepatitis US of abd with mild fatty liver,no masses (4) Essential (primary) hypertension Conclusion/Plan: BP 11/69 with pulse in the 60's resumed his betablocker on 6/ pm's Did not have to increase his lopressor home dose of 25 mg bid. (5) Hypokalemia Conclusion/Plan: and hyponatremia from from intravascular depletion. Potassium and sodium now nml Supplement w po K and IV NS as needed. recheck daily (6) Prostate cancer Conclusion/Plan: T1c. [place] 3+3. Being followed by Urology. He is just done with all of this he is saying there has to be a better way to do surveillance. he hates the indignity of the biopsies. I sympathized and asked him to follow up with Dr. Velez about that. (7) Headache Conclusion/Plan: Resolved not usually a problem and associated with his fever, rigors. has nausea and emesis with it. will use low dose MS to help with the pain. Qualifiers: Headache type: unspecified (8) Thrombocytopenia due to drugs Impression: on lovenox will stop. DVT risk low. He is up in chair, walking in room change to Michael hose and ambulation.
[2018-01-22] MEDS: TAMSULOSIN 0.4 MG CAPSULE PO SCH (09:01)
[2018-01-22] MEDS: METOPROLOL TARTRATE 25 MG TABLET PO SCH ×2 (09:02→21:02)
[2018-01-22] MEDS: POLYETHYLENE GLYCOL 3350 17 GM PACKET PO SCH (09:05)
[2018-01-22] MEDS: ENOXAPARIN 40 MG/0.4 ML SYRINGE SUBQ SCH (09:05)
[2018-01-22] MEDS: levoFLOXacin 500 MG/100 ML 500 MG/100 ML BAG IV SCH (10:30)
[2018-01-22] MEDS: SODIUM CHLORIDE FLUSH 0.9% 10 ML SYRINGE IVP PRN ×2 (12:01→14:56)
[2018-01-22] MEDS: ERTAPENEM 1 GM in SODIUM CHLORIDE 0.9% MINIBAG 100 ML IV SCH (14:49)
[2018-01-22] MEDS: SENNA 8.6 MG TABLET PO SCH (17:32)
[2018-01-22] MEDS: DOCUSATE SODIUM 250 MG CAPSULE PO SCH (17:32)
[2018-01-23] MEDS: ACETAMINOPHEN 500 MG TABLET PO SCH ×3 (01:56→13:32)
[2018-01-23] MEDS: SODIUM CHLORIDE FLUSH 0.9% 10 ML SYRINGE IVP SCH ×4 (01:57→19:05)
[2018-01-23 05:47] LABS: EOSINOPHILS # (AUTO) 0.1 10^3/uL (0.0-0.7); EOSINOPHILS % (AUTO) 1.7 %; HGB - HEMOGLOBIN 12.8 g/dL (14.0-18.0); LYMPHOCYTES # (AUTO) 1.1 10^3/uL (1.5-3.5); LYMPHOCYTES % (AUTO) 27.9 %; MEAN CORPUSCULAR HEMOGLOBIN 29.1 pg (27.0-31.0); MEAN CORPUSCULAR HGB CONC 33.4 g/dL (32.0-36.0); MEAN CORPUSCULAR VOLUME 87.3 fL (80.0-94.0); MEAN PLATELET VOLUME 7.8 fL (7.4-11.4); MONOCYTES # (AUTO) 0.6 10^3/uL (0.0-1.0); MONOCYTES % (AUTO) 16.1 %; NEUTROPHILS % (AUTO) 53.3 %; PLT - PLATELET COUNT 95 10^3/uL (130-450); RED CELL DISTRIBUTION WIDTH 14.2 % (12.0-15.0); WHITE BLOOD COUNT 3.8 x10^3/uL (4.8-10.8)
[2018-01-23] MEDS: IBUPROFEN 600 MG TABLET PO SCH ×3 (05:52→16:29)
[2018-01-23 05:58] LABS: CALCIUM 7.9 mg/dL (8.5-10.3); CREATININE 0.8 mg/dL (0.6-1.2)
[2018-01-23] MEDS: ERTAPENEM 1 GM in SODIUM CHLORIDE 0.9% MINIBAG 100 ML IV SCH (08:41)
[2018-01-23] MEDS: METOPROLOL TARTRATE 25 MG TABLET PO SCH ×2 (08:44→21:46)
[2018-01-23] MEDS: TAMSULOSIN 0.4 MG CAPSULE PO SCH (08:44)
[2018-01-23] MEDS: DOCUSATE SODIUM 250 MG CAPSULE PO SCH (08:44)
[2018-01-23] MEDS: SENNA 8.6 MG TABLET PO SCH (08:44)
[2018-01-23] MEDS: POLYETHYLENE GLYCOL 3350 17 GM PACKET PO SCH (08:46)
[2018-01-23] MEDS ORDERED: POTASSIUM CHLORIDE 20 MEQ TABLET PO ONE ×2 (09:00→17:56)
[2018-01-23] MEDS: oxyCODONE 5 MG TABLET PO PRN ×2 (10:29→20:10)
[2018-01-23] MEDS: PHENAZOPYRIDINE 100 MG TABLET PO SCH ×2 (13:32→21:46)
[2018-01-23] MEDS ORDERED: IBUPROFEN 600 MG TABLET PO PRN (17:55)
[2018-01-23] MEDS ORDERED: ACETAMINOPHEN 500 MG TABLET PO PRN (17:55)
--- NOTE | 2018-01-23 17:57 | PROVIDER PROGRESS NOTE ---
Subjective - Prog Note Date Prog Note Date: 01/23/18 Prog Note Time: 18:05 - Subjective Pt reports feeling: No change Subjective: he has urgency and frequency. Yesterday it was really minimal and it did not hurt so much. Today it is every 10 minutes. no fever no chills.But the urgency and frequency are driving him nuts. He has no dysuria. No rectal pain. Bowel movements do not hurt. Urine is dark brown and tea colored. Current Medications - Current Medications Current Medications: Active Medications Acetaminophen (Tylenol) 500 mg PO Q6H PRN PRN Reason: FEVER > 100.5 F Docusate Sodium (Colace 250mg Capsule) 250 - 500 mg PO DAILY [facility] Last Admin: 01/23/18 08:44 Dose: 250 mg Ertapenem 1 gm/ Sodium (Chloride) 100 mls @ 200 mls/hr IV DAILY [facility] Last Infusion: 01/23/18 09:42 Dose: Infused Ibuprofen (Motrin) 600 mg PO Q6H PRN PRN Reason: PAIN Metoprolol Tartrate (Lopressor) 25 mg PO BID [facility] Last Admin: 01/23/18 08:44 Dose: 25 mg Morphine Sulfate (Morphine) 2 mg IVP Q2H PRN PRN Reason: PAIN Last Admin: 01/20/18 17:52 Dose: 2 mg Ondansetron HCl (Zofran Inj) 4 mg IVP Q6HR PRN PRN Reason: Nausea / Vomiting Last Admin: 01/20/18 16:33 Dose: 4 mg Ondansetron HCl (Zofran Odt) 4 mg TL Q6HR PRN PRN Reason: Nausea / Vomiting Oxycodone HCl (Roxicodone) 5 mg PO Q4HR PRN PRN Reason: PAIN Last Admin: 01/23/18 10:29 Dose: 5 mg Phenazopyridine HCl (Pyridium) 100 mg PO TID [facility] Last Admin: 01/23/18 13:32 Dose: 100 mg Polyethylene Glycol (Miralax) 17 gm PO DAILY [facility] Last Admin: 01/23/18 08:46 Dose: Not Given Senna (Senokot) 8.6 - 17.2 mg PO DAILY [facility] Last Admin: 01/23/18 08:44 Dose: 8.6 mg Sodium Chloride (Normal Saline Flush 0.9%) 10 ml IVP PRN PRN PRN Reason: NEEDED PER PROVIDER ORDERS Last Admin: 01/22/18 14:56 Dose: 10 ml Sodium Chloride (Normal Saline Flush 0.9%) 10 ml IVP 0100,0900,1700 [facility] Last Admin: 01/23/18 16:29 Dose: 10 ml Tamsulosin HCl (Flomax) 0.4 mg PO DAILY [facility] Last Admin: 01/23/18 08:44 Dose: 0.4 mg Cholecalciferol (Vitamin D3) [Vitamin D] 2,000 unit PO DAILY 01/20/18 Metoprolol Tartrate [Metoprolol Tartrate] 25 mg PO BID 01/20/18 Tamsulosin [Flomax] 0.4 mg PO BID 01/20/18 Objective - Vital Signs/Intake & Output Reviewed Vital Signs: Yes Vital Signs: Vital Signs x48h Temp Pulse Resp BP Pulse Ox 01/23/18 15:52 36.8 C 65 20 138/85 H 100 01/23/18 11:23 36.2 C L 70 16 152/87 H 97 Intake & Output: Intake & Output 01/20/18 01/21/18 01/22/18 01/23/18 23:59 23:59 23:59 23:59 Intake Total 3664.286 5558 1670 1350 Output Total 75 1400 1375 1050 Balance 318.472 8331 295 300 - Objective General Appearance: positive: Alert, Mild distress (He is pacing the floors back -and-forth. He says he cannot sleep, cannot even eat because of the urgency and frequency) Eyes Bilateral: positive: PERRL, EOMI ENT: positive: Pharynx nml Neck: positive: No JVD. negative: Stiff neck, Carotid bruit Respiratory: positive: Chest non-tender. negative: Wheezes, Rales, Rhonchi Cardiovascular: positive: Regular rate & rhythm. negative: Gallop/S4, Friction rub Abdomen: positive: Non-tender, No organomegaly, Nml bowel sounds, No distention , Other (urine continues to be brown or tea colored.). negative: Guarding, Rebound Skin: positive: Dry. negative: Pallor Extremities: positive: Non-tender. negative: No pedal edema Neurologic/Psychiatric: positive: Oriented x3, CN's nml (2-12), Motor nml - Lab Results Fish Bones: 01/23/18 05:33 01/23/18 05:33 Other Labs: Lab Results x24hrs 01/23/18 01/23/18 Range/Units 05:33 05:33 WBC 3.8 L (4.8-10.8) x10^3/uL RBC 4.40 L (4.70-6.10) 10^6/uL Hgb 12.8 L (14.0-18.0) g/dL Hct 38.4 L (42.0-52.0) % MCV 87.3 (80.0-94.0) fL MCH 29.1 (27.0-31.0) pg MCHC 33.4 (32.0-36.0) g/dL RDW 14.2 (12.0-15.0) % Plt Count 95 L (130-450) 10^3/uL MPV 7.8 (7.4-11.4) fL Neut # (Auto) 2.0 (1.5-6.6) 10^3/uL Lymph # (Auto) 1.1 L (1.5-3.5) 10^3/uL [place] # (Auto) 0.6 (0.0-1.0) 10^3/uL Eos # (Auto) 0.1 (0.0-0.7) 10^3/uL Baso # (Auto) 0.0 (0.0-0.1) 10^3/uL Absolute Nucleated RBC 0.00 x10^3/uL Nucleated RBC % 0.1 /100WBC Sodium 133 L (135-145) mmol/L Potassium 3.1 L (3.5-5.0) mmol/L Chloride 102 (101-111) mmol/L Carbon Dioxide 23 (21-32) mmol/L Anion Gap 8.0 (6-13) BUN 13 (6-20) mg/dL Creatinine 0.8 (0.6-1.2) mg/dL Estimated GFR (MDRD) 99 (>89) Glucose 100 (70-100) mg/dL Calcium 7.9 L (8.5-10.3) mg/dL ABX Reporting Has patient been on IV antibiotics over the past 48 hours?: Yes Assessment/Plan - Problem List (1) Urinary tract infection Impression: from prostatitis and biopsy. has a hx of prostate cancer. I did call his Urologist Dr. Velez @ [phone] and spoke to his resident rehabilitation teacher. They don't recommend changing anything for now. If he doesn't respond, repeat the CT in 2-3 days and call them back. They may want the patient in transfer.For right now they feel he can stay here. Plan: levaquin IV, Day #3. Zosyn Day #2 are to be stopped change to ertepenam and today Day #2 CT pelvis, looking for pelvic disease p biopsy, showed early changed of prostatitis and/or perirectal abcess. With change in symptoms will repeat CT pelvis. continue flomax. Consider switching to oral meds tomorrow if CT ok and if no fever, can go home on 3 weeks of Bactrim and fu with Urologist Qualifiers: Urinary tract infection type: site unspecified Hematuria presence: with hematuria Qualified Code(s): N39.0 - Urinary tract infection, site not specified; R31.9 - Hematuria, unspecified; R31.9 - Hematuria, unspecified (2) Abnormal LFTs (liver function tests) Conclusion/Plan: hepatitis panel negative for viral hepatitis US of abd with mild fatty liver,no masses Suspect some element of cirrhosis (3) Essential (primary) hypertension Conclusion/Plan: BP 138/85 with pulse in the 70's resumed his betablocker on 6/ pm's Did not have to increase his lopressor home dose of 25 mg bid. (4) Hypokalemia Conclusion/Plan: and hyponatremia from from intravascular depletion. Potassium and sodium were nml yesterday and back to being low today Supplement w po K and IV NS as needed. recheck daily (5) Prostate cancer Conclusion/Plan: T1c. [place] 3+3. Being followed by Urology. He is just done with all of this he is saying there has to be a better way to do surveillance. he hates the indignity of the biopsies. I sympathized and asked him to follow up with Dr. Velez about that. (6) Headache Conclusion/Plan: Resolved not usually a problem and associated with his fever, rigors. has nausea and emesis with it. will use low dose MS to help with the pain. Qualifiers: Headache type: unspecified (7) Sepsis associated hypotension Impression: Resolved. High fevers were still present day after admission and started on round the clock tylenol and ibuprofen with opiate as separate dosing to avoid tylenol toxicity. mosts likely source is the prostate and recent biopsy but the abnormal LFTs do give pause. Since the fever has been gone for >48 hours will change the tylenol and ibu to prn again. Exam neg for cholecystitis CT of pelvis done shows early changes of perirectal abcess and/or prostatitis. So far no pain. Just dysuria. Levaquin started on admission and zosyn added later that day. Blood and urine cultures from 1st day are positive for E coli. This E coli is resistant to both Zosyn and levaquin Second set of blood cultures on both abx were (+) for gram neg bacilli but no ID yet Plan: Admitted to inpatient status 3 liters of NS at 200 cc/hr have been stopped. Encouraged to get out of bed and walk in room. Checked lactic acid q3 x 3 and all have been negative Changed to ertapenem 1 gram daily since E coli sensitive to that. Day #2. Plan for switch to oral tomorrow. When he is transitioned to oral meds, I can used Bactrim .
[2018-01-23] MEDS: MORPHINE 2 MG/ML SYRINGE IVP PRN ×2 (19:04→21:31)
[2018-01-23] MEDS ORDERED: IOPAMIDOL-300 100 ML VIAL ONE (19:05)
[2018-01-23] MEDS ORDERED: IOPAMIDOL-300 100 ML VIAL IVP ONE (20:00)
--- NOTE | 2018-01-23 20:47 | CT Preliminary Report ---
Exam: CT PELVIS W/ IMPRESSION: 1. Moderate urinary bladder distention causing mild bilateral obstructive uropathy. 2. Colonic diverticulosis. 3. Almost complete resolution of the presacral linear fluid and edema. 4. Increasing asymmetric rectal wall thickening with increasing perirectal edema. No discrete abscess . 5. Persistent marked enlargement with inhomogeneous enhancement of the seminal vesicles and the prost ate. Differential includes inflammatory process, immediate post radiation therapy, malignancy. [facility] SITE ID: [id number]
--- NOTE | 2018-01-23 21:05 | CT Report ---
EXAM: CT PELVIS EXAM DATE: 01/23/2018 08:00 PM. CLINICAL HISTORY: Prostate cancer. Worsening pelvic pain and dysuria. Follow-up perirectal and presac ral inflammatory changes. COMPARISONS: 01/21/2018. TECHNIQUE: Routine helical CT imaging was performed through the pelvis. IV contrast: 10 mL Isovue-300 . Enteric contrast: No. Reconstructions: Coronal and sagittal. In accordance with CT protocol optimization, one or more of the following dose reduction techniques w ere utilized for this exam: automated exposure control, adjustment of mA and/or KV based on patient s ize, or use of iterative reconstructive technique. FINDINGS: Visualized Abdominal Organs: New mild dilatation both ureters. Peritoneal Cavity/Bowel: Diverticula off the colon. No free fluid, free air or adenopathy. No masses or acute inflammatory process. The appendix is well visualized and normal. Pelvic Organs: Urinary bladder now moderately distended, measuring 16 cm superior inferior dimension. Seminal vesicles remain markedly enlarged as does the prostate. Prostate measures 8 cm in maximum dim ension with markedly inhomogeneous enhancement. No discrete abscess. Stable shotty bilateral internal iliac adenopathy. Increasing moderate asymmetric wall thickening of the rectum. Increasing moderate perirectal edema wi thout extraluminal air nor focal fluid collection. Decreasing presacral linear fluid. Vasculature: No aneurysms or other significant abnormality. Bones: Marked degenerative disk disease L4-L5. No bony metastatic disease. Other: None. IMPRESSION: 1. Moderate urinary bladder distention causing mild bilateral obstructive uropathy. 2. Colonic diverticulosis. 3. Almost complete resolution of the presacral linear fluid and edema. 4. Increasing asymmetric rectal wall thickening with increasing perirectal edema. No discrete abscess . 5. Persistent marked enlargement with inhomogeneous enhancement of the seminal vesicles and the prost ate. Differential includes inflammatory process, immediate post radiation therapy, malignancy. [facility] Referring Provider Line: [phone] SITE ID: [id number]
[2018-01-23] MEDS: SODIUM CHLORIDE FLUSH 0.9% 10 ML SYRINGE IVP PRN ×2 (21:32→23:47)
[2018-01-23] MEDS ORDERED: LIDOCAINE 2% URO-JET 5 ML SYRINGE UR ONE (21:36)
[2018-01-24] MEDS: PHENAZOPYRIDINE 100 MG TABLET PO SCH ×3 (05:25→21:05)
[2018-01-24 05:50] LABS: BASOPHILS % (AUTO) 0.7 %; EOSINOPHILS # (AUTO) 0.1 10^3/uL (0.0-0.7); EOSINOPHILS % (AUTO) 1.6 %; HGB - HEMOGLOBIN 12.6 g/dL (14.0-18.0); LYMPHOCYTES # (AUTO) 1.2 10^3/uL (1.5-3.5); LYMPHOCYTES % (AUTO) 18.1 %; MEAN CORPUSCULAR HEMOGLOBIN 29.1 pg (27.0-31.0); MEAN CORPUSCULAR HGB CONC 33.3 g/dL (32.0-36.0); MEAN CORPUSCULAR VOLUME 87.4 fL (80.0-94.0); MEAN PLATELET VOLUME 7.7 fL (7.4-11.4); MONOCYTES # (AUTO) 0.9 10^3/uL (0.0-1.0); MONOCYTES % (AUTO) 13.5 %; NEUTROPHILS # (AUTO) 4.2 10^3/uL (1.5-6.6); NEUTROPHILS % (AUTO) 66.1 %; PLT - PLATELET COUNT 134 10^3/uL (130-450); RED BLOOD COUNT 4.33 10^6/uL (4.70-6.10); RED CELL DISTRIBUTION WIDTH 14.7 % (12.0-15.0); WHITE BLOOD COUNT 6.4 x10^3/uL (4.8-10.8)
[2018-01-24 05:55] LABS: CALCIUM 8.4 mg/dL (8.5-10.3)
[2018-01-24] MEDS: ERTAPENEM 1 GM in SODIUM CHLORIDE 0.9% MINIBAG 100 ML IV SCH (08:38)
[2018-01-24] MEDS: DOCUSATE SODIUM 250 MG CAPSULE PO SCH (08:38)
[2018-01-24] MEDS: TAMSULOSIN 0.4 MG CAPSULE PO SCH (08:38)
[2018-01-24] MEDS: SENNA 8.6 MG TABLET PO SCH (08:38)
[2018-01-24] MEDS: METOPROLOL TARTRATE 25 MG TABLET PO SCH ×2 (08:38→21:05)
[2018-01-24] MEDS: POLYETHYLENE GLYCOL 3350 17 GM PACKET PO SCH (08:39)
[2018-01-24] MEDS: SODIUM CHLORIDE FLUSH 0.9% 10 ML SYRINGE IVP SCH ×2 (08:39→18:05)
--- NOTE | 2018-01-24 18:54 | PROVIDER PROGRESS NOTE ---
Subjective - Prog Note Date Prog Note Date: 01/24/18 Prog Note Time: 15:00 - Subjective Pt reports feeling: Improved (Patient denies any fever or chills. He says his pain is well-managed. He says he slept well last night.) Current Medications - Current Medications Current Medications: Acetaminophen, docusate, ertapenem, ibuprofen, metoprolol, morphine, ondansetron , oxycodone, phenazopyridine, polyethylene glycol, senna, sodium chloride, Tamsulosin Objective - Vital Signs/Intake & Output Reviewed Vital Signs: Yes Vital Signs: Vital Signs x48h Temp Pulse Resp BP Pulse Ox 01/24/18 15:51 37.0 C 66 18 137/81 H 97 01/24/18 12:49 37.5 C 78 18 138/81 H 94 Intake & Output: Intake & Output 01/21/18 01/22/18 01/23/18 01/24/18 23:59 23:59 23:59 23:59 Intake Total 3395 1670 2440 940 Output Total 1400 1375 3500 3000 Balance 1994 295 -1060 -2060 - Objective General Appearance: positive: No acute distress, Alert Eyes Bilateral: positive: Normal inspection, PERRL, EOMI, No lid inflammation, Conjunctivae nml, No scleral icterus ENT: positive: ENT inspection nml, Pharynx nml, No signs of dehydration Neck: positive: Nml inspection, Thyroid nml, No JVD, Trachea midline. negative : Thyromegaly Respiratory: positive: Chest non-tender, No respiratory distress, Breath sounds nml. negative: Wheezes, Rales, Rhonchi Cardiovascular: positive: Regular rate & rhythm, No murmur, No gallop Abdomen: positive: Non-tender, No organomegaly, Nml bowel sounds, No distention. negative: Guarding, Rebound Back: positive: Nml inspection. negative: CVA tenderness (R), CVA tenderness (L ) Skin: positive: Color nml, No rash, Warm, Dry. negative: Cyanosis Extremities: positive: Non-tender, Full ROM, Nml appearance, No pedal edema Neurologic/Psychiatric: positive: Oriented x3, CN's nml (2-12), Motor nml, Sensation nml, Mood/affect nml - Lab Results Fish Bones: 01/24/18 05:20 01/24/18 05:20 Other Labs: Lab Results x24hrs 01/24/18 01/24/18 Range/Units 05:20 05:20 WBC 6.4 (4.8-10.8) x10^3/uL RBC 4.33 L (4.70-6.10) 10^6/uL Hgb 12.6 L (14.0-18.0) g/dL Hct 37.9 L (42.0-52.0) % MCV 87.4 (80.0-94.0) fL MCH 29.1 (27.0-31.0) pg MCHC 33.3 (32.0-36.0) g/dL RDW 14.7 (12.0-15.0) % Plt Count 134 (130-450) 10^3/uL MPV 7.7 (7.4-11.4) fL Neut # (Auto) 4.2 (1.5-6.6) 10^3/uL Lymph # (Auto) 1.2 L (1.5-3.5) 10^3/uL [place] # (Auto) 0.9 (0.0-1.0) 10^3/uL Eos # (Auto) 0.1 (0.0-0.7) 10^3/uL Baso # (Auto) 0.0 (0.0-0.1) 10^3/uL Absolute Nucleated RBC 0.00 x10^3/uL Nucleated RBC % 0.1 /100WBC Sodium 136 (135-145) mmol/L Potassium 3.7 (3.5-5.0) mmol/L Chloride 106 (101-111) mmol/L Carbon Dioxide 24 (21-32) mmol/L Anion Gap 6.0 (6-13) BUN 13 (6-20) mg/dL Creatinine 1.0 (0.6-1.2) mg/dL Estimated GFR (MDRD) 76 L (>89) Glucose 106 H (70-100) mg/dL Calcium 8.4 L (8.5-10.3) mg/dL ABX Reporting Has patient been on IV antibiotics over the past 48 hours?: Yes Assessment/Plan - Problem List (1) Urinary tract infection Impression: The patient was changed from Zosyn and Levaquin to ertapenem based on culture results. He is showing clinical improvement at this time. Continue present care. (2) Abnormal LFTs (liver function tests) Impression: The patient had hepatitis testing done which was negative for viral hepatitis. Ultrasound of the abdomen shows mild fatty liver, no masses. Will repeat CMP and see if there has been any changes in the levels. (3) Essential (primary) hypertension Impression: Well-managed at this time, continue metoprolol (4) Prostate cancer Impression: T1c, [place] 3+3. The patient believes all his trouble started with the recent biopsy. Continue to follow with Dr. Velez (5) Headache Impression: Improved/resolved. (6) Hypokalemia Impression: Corrected, potassium today 3.7
[2018-01-25] MEDS: SODIUM CHLORIDE FLUSH 0.9% 10 ML SYRINGE IVP SCH ×3 (00:12→18:05)
[2018-01-25 06:08] LABS: BASOPHILS # (AUTO) 0.1 10^3/uL (0.0-0.1); BASOPHILS % (AUTO) 0.8 %; EOSINOPHILS # (AUTO) 0.2 10^3/uL (0.0-0.7); EOSINOPHILS % (AUTO) 2.6 %; HGB - HEMOGLOBIN 12.7 g/dL (14.0-18.0); LYMPHOCYTES % (AUTO) 24.3 %; MEAN CORPUSCULAR HEMOGLOBIN 29.2 pg (27.0-31.0); MEAN CORPUSCULAR HGB CONC 33.6 g/dL (32.0-36.0); MEAN CORPUSCULAR VOLUME 86.9 fL (80.0-94.0); MEAN PLATELET VOLUME 7.1 fL (7.4-11.4); MONOCYTES # (AUTO) 1.1 10^3/uL (0.0-1.0); MONOCYTES % (AUTO) 12.8 %; NEUTROPHILS # (AUTO) 4.9 10^3/uL (1.5-6.6); NEUTROPHILS % (AUTO) 59.5 %; PLT - PLATELET COUNT 188 10^3/uL (130-450); RED BLOOD COUNT 4.35 10^6/uL (4.70-6.10); RED CELL DISTRIBUTION WIDTH 14.2 % (12.0-15.0); WHITE BLOOD COUNT 8.2 x10^3/uL (4.8-10.8)
[2018-01-25 06:19] LABS: ALBUMIN 3.2 g/dL (3.2-5.5); ALBUMIN/GLOBULIN RATIO 0.9 (1.0-2.2); BILIRUBIN,TOTAL 0.6 mg/dL (0.2-1.0); CALCIUM 8.3 mg/dL (8.5-10.3); CREATININE 0.9 mg/dL (0.6-1.2); TOTAL PROTEIN 6.9 g/dL (6.7-8.2)
[2018-01-25] MEDS: PHENAZOPYRIDINE 100 MG TABLET PO SCH ×3 (06:34→21:21)
[2018-01-25] MEDS: TAMSULOSIN 0.4 MG CAPSULE PO SCH (08:32)
[2018-01-25] MEDS: ERTAPENEM 1 GM in SODIUM CHLORIDE 0.9% MINIBAG 100 ML IV SCH (08:33)
[2018-01-25] MEDS: DOCUSATE SODIUM 250 MG CAPSULE PO SCH (08:38)
[2018-01-25] MEDS: SENNA 8.6 MG TABLET PO SCH (08:38)
[2018-01-25] MEDS: POLYETHYLENE GLYCOL 3350 17 GM PACKET PO SCH (08:38)
[2018-01-25] MEDS: NITROFURANTOIN MACRO 100 MG CAPSULE PO SCH ×2 (10:25→21:21)
--- NOTE | 2018-01-25 16:59 | PROVIDER PROGRESS NOTE ---
Subjective - Prog Note Date Prog Note Date: 01/25/18 Prog Note Time: 14:00 - Subjective Pt reports feeling: Improved (Pt denies any frequency,urgency or dysuria. He has no other new complaints.) Current Medications - Current Medications Current Medications: Acetaminophen, docusate sodium, ertapenem, ibuprofen, metoprolol, morphine, nitrofurantoin, ondansetron, oxycodone, phenazopyridine, polyethylene glycol, potassium chloride, senna, sodium chloride, tamsulosin Objective - Vital Signs/Intake & Output Reviewed Vital Signs: Yes Vital Signs: Vital Signs x48h Temp Pulse Resp BP Pulse Ox 01/25/18 16:07 36.9 C 61 20 139/82 H 95 01/25/18 12:11 37 C 86 20 144/83 H 94 Intake & Output: Intake & Output 01/22/18 01/23/18 01/24/18 01/25/18 23:59 23:59 23:59 23:59 Intake Total 1670 2440 1290 810 Output Total 1375 3500 3800 1200 Balance 295 -1060 -2510 -390 - Objective General Appearance: positive: No acute distress, Alert Eyes Bilateral: positive: Normal inspection, PERRL, EOMI, No lid inflammation, Conjunctivae nml, No scleral icterus ENT: positive: ENT inspection nml, Pharynx nml, No signs of dehydration Neck: positive: Nml inspection, Thyroid nml, No JVD, Trachea midline. negative : Thyromegaly Respiratory: positive: Chest non-tender, No respiratory distress, Breath sounds nml. negative: Wheezes, Rales, Rhonchi Cardiovascular: positive: Regular rate & rhythm, No murmur, No gallop Abdomen: positive: Non-tender, No organomegaly, Nml bowel sounds, No distention. negative: Guarding, Rebound Back: positive: Nml inspection. negative: CVA tenderness (R), CVA tenderness (L ) Skin: positive: Color nml, No rash, Warm, Dry. negative: Cyanosis Extremities: positive: Non-tender, Full ROM, Nml appearance, No pedal edema Neurologic/Psychiatric: positive: Oriented x3, CN's nml (2-12), Motor nml, Sensation nml, Mood/affect nml - Lab Results Fish Bones: 01/25/18 05:54 01/25/18 05:54 Other Labs: Lab Results x24hrs 01/25/18 01/25/18 Range/Units 05:54 05:54 WBC 8.2 (4.8-10.8) x10^3/uL RBC 4.35 L (4.70-6.10) 10^6/uL Hgb 12.7 L (14.0-18.0) g/dL Hct 37.8 L (42.0-52.0) % MCV 86.9 (80.0-94.0) fL MCH 29.2 (27.0-31.0) pg MCHC 33.6 (32.0-36.0) g/dL RDW 14.2 (12.0-15.0) % Plt Count 188 (130-450) 10^3/uL MPV 7.1 L (7.4-11.4) fL Neut # (Auto) 4.9 (1.5-6.6) 10^3/uL Lymph # (Auto) 2.0 (1.5-3.5) 10^3/uL [place] # (Auto) 1.1 H (0.0-1.0) 10^3/uL Eos # (Auto) 0.2 (0.0-0.7) 10^3/uL Baso # (Auto) 0.1 (0.0-0.1) 10^3/uL Absolute Nucleated RBC 0.01 x10^3/uL Nucleated RBC % 0.1 /100WBC Sodium 138 (135-145) mmol/L Potassium 3.4 L (3.5-5.0) mmol/L Chloride 104 (101-111) mmol/L Carbon Dioxide 26 (21-32) mmol/L Anion Gap 8.0 (6-13) BUN 13 (6-20) mg/dL Creatinine 0.9 (0.6-1.2) mg/dL Estimated GFR (MDRD) 86 L (>89) Glucose 98 (70-100) mg/dL Calcium 8.3 L (8.5-10.3) mg/dL Total Bilirubin 0.6 (0.2-1.0) mg/dL AST 130 H (10-42) IU/L ALT 173 H (10-60) IU/L Alkaline Phosphatase 161 H (42-121) IU/L Total Protein 6.9 (6.7-8.2) g/dL Albumin 3.2 (3.2-5.5) g/dL Globulin 3.7 (2.1-4.2) g/dL Albumin/Globulin Ratio 0.9 L (1.0-2.2) ABX Reporting Has patient been on IV antibiotics over the past 48 hours?: Yes Assessment/Plan - Problem List (1) Urinary tract infection Impression: The patient was changed from Zosyn and Levaquin to ertapenem based on culture results. He is showing clinical improvement at this time, However the patient' s white blood cell count is rising steadily albeit still within normal limits. I have added nitrofurantoin which the patient's UTI appears to be sensitive to culture studies and if the patient remained stable overnight we will discharge him home on nitrofurantoin for 10 days. Continue present care. (2) Abnormal LFTs (liver function tests) Impression: Transaminases remain elevated however hepatitis panel has come back nonreactive. Ultrasound of the abdomen shows mild fatty liver, no masses. Repeat CMP does not show any changes in the transaminase levels. (3) Essential (primary) hypertension Impression: Labile but well managed, continue metoprolol (4) Prostate cancer Impression: T1c, [place] 3+3. The patient believes all his trouble started with the recent biopsy. Continue to follow with Dr. Velez (5) Headache Impression: Improved, resolved. (6) Hypokalemia Impression: The patient's potassium levels fluctuate fairly widely daily. Potassium level today is 3.4. Continue present care.
[2018-01-25] MEDS: POTASSIUM CHLORIDE 20 MEQ TABLET PO SCH (18:05)
[2018-01-25] MEDS: METOPROLOL TARTRATE 25 MG TABLET PO SCH (21:21)
[2018-01-26 05:25] LABS: BASOPHILS # (AUTO) 0.1 10^3/uL (0.0-0.1); BASOPHILS % (AUTO) 0.9 %; EOSINOPHILS # (AUTO) 0.3 10^3/uL (0.0-0.7); EOSINOPHILS % (AUTO) 4.1 %; HGB - HEMOGLOBIN 13.3 g/dL (14.0-18.0); LYMPHOCYTES % (AUTO) 27.4 %; MEAN CORPUSCULAR HEMOGLOBIN 29.8 pg (27.0-31.0); MEAN CORPUSCULAR HGB CONC 33.4 g/dL (32.0-36.0); MEAN CORPUSCULAR VOLUME 89.1 fL (80.0-94.0); MEAN PLATELET VOLUME 6.9 fL (7.4-11.4); MONOCYTES # (AUTO) 0.9 10^3/uL (0.0-1.0); MONOCYTES % (AUTO) 12.8 %; NEUTROPHILS % (AUTO) 54.8 %; PLT - PLATELET COUNT 257 10^3/uL (130-450); RED BLOOD COUNT 4.45 10^6/uL (4.70-6.10); RED CELL DISTRIBUTION WIDTH 14.2 % (12.0-15.0); WHITE BLOOD COUNT 7.3 x10^3/uL (4.8-10.8)
[2018-01-26 05:35] LABS: CALCIUM 8.5 mg/dL (8.5-10.3); CREATININE 0.8 mg/dL (0.6-1.2)
[2018-01-26] MEDS: PHENAZOPYRIDINE 100 MG TABLET PO SCH (05:59)
[2018-01-26] MEDS: SODIUM CHLORIDE FLUSH 0.9% 10 ML SYRINGE IVP SCH ×2 (05:59→09:29)
[2018-01-26] MEDS: TAMSULOSIN 0.4 MG CAPSULE PO SCH (09:21)
[2018-01-26] MEDS: METOPROLOL TARTRATE 25 MG TABLET PO SCH (09:21)
[2018-01-26] MEDS: NITROFURANTOIN MACRO 100 MG CAPSULE PO SCH (09:21)
[2018-01-26] MEDS: POTASSIUM CHLORIDE 20 MEQ TABLET PO SCH (09:21)
[2018-01-26] MEDS: ERTAPENEM 1 GM in SODIUM CHLORIDE 0.9% MINIBAG 100 ML IV SCH (09:22)
[2018-01-26] MEDS: SENNA 8.6 MG TABLET PO SCH (09:29)
[2018-01-26] MEDS: POLYETHYLENE GLYCOL 3350 17 GM PACKET PO SCH (09:29)
[2018-01-26] MEDS: DOCUSATE SODIUM 250 MG CAPSULE PO SCH (09:29)
--- NOTE | 2018-01-26 10:54 | Discharge Plan ---
Discharge Plan Disposition: Home, Self Care Condition: Serious Prescriptions: Metoprolol Tartrate [Lopressor] 25 mg PO BID #20 tablet Nitrofurantoin [Macrobid] 100 mg PO BID #20 capsule Diet: Regular Activity Restrictions: Activity as Tolerated Shower Restrictions: No Driving Restrictions: No Weight Bearing: Full Weight Additional Instructions or Follow Up instructions: Follow up with Dr Velez at [facility] on Tuesday for a voiding trial to see if they can take out the catheter and leave it out. No Smoking: If you smoke, Please STOP! Call for help. Follow-up with: Konrad Paige MD [Primary Care Provider] -
--- NOTE | 2018-01-26 11:57 | DISCHARGE SUMMARY ---
Discharge Summary Admit Date: 01/20/18 Discharge Date: 01/26/18 Discharging Provider: Arianna Hansen DO Primary Care Provider: Tayo Ruiz MD Code Status: Attempt Resuscitation Condition at Discharge: Serious Discharge Disposition: 01 Home, Self Care - DIAGNOSES Admission Diagnoses: 1. Sepsis associated hypotension 2. Urinary tract infection 3. Abnormal LFTs 4. Essential hypertension 5. Hypokalemia 6. Prostate cancer 7. Headache Discharge Diagnoses with Status of Each Condition: 1. Sepsis associated hypotension - resolved. 2. Urinary tract infection - Likely secondary to prostate biopsy. I have spoken with Dr. Velez, the patient's urologist who has been working with him with regards to his prostate cancer. Dr. Veelz wants the patient to be discharged with the [place] in place and that he should follow-up in 4 days for a voiding trial. He will also remain on antibiotics for another 10 days. 3. Abnormal LFTs - Unsure of etiology, hepatitis panel was negative. Patient does have a history of alcohol abuse according to family. 4. Essential hypertension - continue metoprolol. 5. Hypokalemia- corrected, K+ today 3.7 6. Prostate cancer- Treatment per Dr Velez at [facility]. 7. Headache - resolved - HPI History of Present Illness: From Dr Vo's H&P: He had a rising PSA and ended up having a prostate biopsy at [facility] this week. Since that time he has started to feel badly. In the last few days he has had alessandro fever, chills, rigors. No bloody stool. No urgency frequency or dysuria. Nausea resulted in sharply reduced food and fluid intake. He asked his PCP for pain meds and antibiotics and was told to take some tylenol and see how he felt. He came to the emergency room where he is afebrile but tachycardic and blood pressure is starting to drop. He was initially in the 1teens and now he is 90 systolic. Lab work shows him to have an elevated white cell count. Elevated liver enzymes. Elevated white cell count and a positive urine with regards to infection. There is no abdominal complaints with this. Dr. Hale states there is no right upper quadrant pain. He is now admitted for sepsis, most likely from urologic source and possibly prostate - HOSPITAL COURSE Hospital Course: The patient was admitted to medical surgical bed and started on empiric antibiotics. When the culture and sensitivity results came back we change the patient's antibiotics to ertapenem as he was resistant to the Zosyn which had been initially started on. His symptoms began improving almost immediately and he was started on nitrofurantoin orally yesterday which he has tolerated well. He will be discharged home on nitrofurantoin and will follow-up in 4 or [address] Velez for a voiding trial. - ALLERGIES Allergies/Adverse Reactions: Allergies Allergy/AdvReac Type Severity Reaction Status Date / Time No Known Drug Allergies Allergy Verified 01/20/18 09:01 - MEDICATIONS Home Medications: Ambulatory Orders Medication Instructions Recorded Confirmed Cholecalciferol (Vitamin D3) 2,000 unit PO DAILY 01/20/18 01/20/18 [Vitamin D3] Metoprolol Tartrate 25 mg PO BID 01/20/18 01/20/18 Tamsulosin [Flomax] 0.4 mg PO BID 01/20/18 01/20/18 Ibuprofen [Motrin] 600 mg PO Q6H PRN tablet 01/26/18 Metoprolol Tartrate [Lopressor] 25 mg PO BID #20 tablet 01/26/18 Nitrofurantoin [Macrobid] 100 mg PO BID #20 capsule 01/26/18 Polyethylene Glycol 3350 [Miralax] 17 gm PO DAILY packet 01/26/18 Senna [Senokot] 8.6 - 17.2 mg PO DAILY tablet 01/26/18 - PHYSICAL EXAM AT DISCHARGE General Appearance: positive: No acute distress, Alert Eyes Bilateral: positive: Normal inspection, PERRL, EOMI, No lid inflammation, Conjunctivae nml, No scleral icterus ENT: positive: ENT inspection nml, Pharynx nml, No signs of dehydration Neck: positive: Nml inspection, Thyroid nml, No JVD, Trachea midline. negative : Thyromegaly Respiratory: positive: Chest non-tender, No respiratory distress, Breath sounds nml Cardiovascular: positive: Regular rate & rhythm, No murmur, No gallop Peripheral Pulses: positive: 1+ Abdomen: positive: Non-tender, No organomegaly, Nml bowel sounds, No distention. negative: Guarding, Rebound Back: positive: Nml inspection. negative: CVA tenderness (R), CVA tenderness (L ) Skin: positive: Color nml, No rash, Warm, Dry. negative: Cyanosis Extremities: positive: Non-tender, Full ROM, Nml appearance, No pedal edema Neurologic/Psychiatric: positive: Oriented x3, CN's nml (2-12), Motor nml, Sensation nml, Mood/affect nml - LABS Result Diagrams: 01/26/18 05:05 01/26/18 05:05 - DIAGNOSTIC IMAGING Diagnostic Imaging Results: Final report reviewed Diagnostic Imaging Results Comments: EXAM: [id number] US/ABDCOMP ([id number]) COMPLETE ABDOMINAL ULTRASOUND: 01/20/2018 INDICATION: Abnormal colon LFTs. TECHNIQUE: Real-time scanning was performed with artists' booking representative static images obtained. FINDINGS: The liver measures 18 cm. Hepatic echogenicity is mildly increased, suspicious for mild fatty infiltration. No focal parenchymal lesion or intrahepatic biliary dilatation is present. The common bile duct measures 5 mm. The pancreas is obscured by bowel gas. The gallbladder demonstrates adenomyomatosis of the gallbladder wall, but no evidence of cholelithiasis, wall thickening, or pericholecystic fluid. The kidneys are normal, with the right measuring 11.7 cm, and the left measuring 10.5 cm. The spleen measures 11.7 cm, and demonstrates normal echotexture. The abdominal aorta is normal in caliber throughout. The inferior vena cava is unremarkable. No free fluid is present. IMPRESSION: MILD FATTY INFILTRATION OF THE LIVER. NO EVIDENCE OF CHOLELITHIASIS OR BILIARY OBSTRUCTION. EXAM: [id number] CT/PELW ([id number]) EXAM: CT PELVIS EXAM DATE: 01/21/2018 10:42 AM. CLINICAL HISTORY: Bacteremia, prostate cancer. COMPARISONS: None. TECHNIQUE: Routine helical CT imaging was performed through the pelvis. IV contrast: ISOVUE 300 100mL. Enteric contrast: No. Reconstructions: Coronal and sagittal. In accordance with CT protocol optimization, one or more of the following dose reduction techniques were utilized for this exam: automated exposure control, adjustment of mA and/or KV based on patient size, or use of iterative reconstructive technique. FINDINGS: Visualized Abdominal Organs: Normal. Peritoneal Cavity/Bowel: No pelvic adenopathy, mass or collection. No pneumoperitoneum in the pelvis. Occasional sigmoid diverticula noted without inflammation. Moderate rectal wall thickening best seen on image 34 without a focal mass. Presacral and perirectal stranding is noted. No bowel obstruction. Pelvic Organs: Marked prostate and seminal vesicle enlargement. Fat stranding is noted surrounding the prostate gland and seminal vesicles. Presacral stranding is described above. Bladder is incompletely distended with mild fast running adjacent to the bladder wall and mild bladder wall thickening. No bladder stones or focal bladder mass. Vasculature: No aneurysms or other significant abnormality. Bones: No osteoblastic or osteolytic lesions are present. Moderate L5-S1 degenerative disk disease. Other: None. IMPRESSION: 1. No abscess or perforation noted. 2. Marked prostate and seminal vesicle enlargement with adjacent stranding. Differential includes prostatitis versus post therapy inflammation. 3. Mild to moderate rectal wall thickening with perirectal and presacral stranding. Correlate for history of recent treatment of prostate carcinoma. In the absence of recent treatment, prostatitis is on the differential. 4. No bulky adenopathy in the pelvis. No osteoblastic or osteolytic lesions are noted. EXAM: [id number] CT/PELW ([id number]) EXAM: CT PELVIS EXAM DATE: 01/23/2018 08:00 PM. CLINICAL HISTORY: Prostate cancer. Worsening pelvic pain and dysuria. Follow-up perirectal and presacral inflammatory changes. COMPARISONS: 01/21/2018. TECHNIQUE: Routine helical CT imaging was performed through the pelvis. IV contrast: 10 mL Isovue- 300. Enteric contrast: No. Reconstructions: Coronal and sagittal. In accordance with CT protocol optimization, one or more of the following dose reduction techniques were utilized for this exam: automated exposure control, adjustment of mA and/or KV based on patient size, or use of iterative reconstructive technique. FINDINGS: Visualized Abdominal Organs: New mild dilatation both ureters. Peritoneal Cavity/Bowel: Diverticula off the colon. No free fluid, free air or adenopathy. No masses or acute inflammatory process. The appendix is well visualized and normal. Pelvic Organs: Urinary bladder now moderately distended, measuring 16 cm superior inferior dimension. Seminal vesicles remain markedly enlarged as does the prostate. Prostate measures 8 cm in maximum dimension with markedly inhomogeneous enhancement. No discrete abscess. Stable shotty bilateral internal iliac adenopathy. Increasing moderate asymmetric wall thickening of the rectum. Increasing moderate perirectal edema without extraluminal air nor focal fluid collection. Decreasing presacral linear fluid. Vasculature: No aneurysms or other significant abnormality. Bones: Marked degenerative disk disease L4-L5. No bony metastatic disease. Other: None. IMPRESSION: 1. Moderate urinary bladder distention causing mild bilateral obstructive uropathy. 2. Colonic diverticulosis. 3. Almost complete resolution of the presacral linear fluid and edema. 4. Increasing asymmetric rectal wall thickening with increasing perirectal edema. No discrete abscess. 5. Persistent marked enlargement with inhomogeneous enhancement of the seminal vesicles and the prostate. Differential includes inflammatory process, immediate post radiation therapy, malignancy. - FOLLOW UP Follow Up: Follow-up with Dr. Velez at [facility] for a voiding trial on Tuesday or Tuesday - TIME SPENT Time Spent in Discharge (Minutes): 40
[2018-01-26 12:29] VITALS: BP 125/82
== END 2018-01-26 14:29 | disposition home or self-care (01) | DRG 862 ==
LOC: ED 08:48 → MS2 12:25
PROVIDERS: ADMIT Specialist; ATTEND Hospitalist
DX: T81.4XXA Infection following a procedure, initial encounter (principal); A41.51 Sepsis due to Escherichia coli [E. coli]; N39.0 Urinary tract infection, site not specified; E87.1 Hypo-osmolality and hyponatremia; Y84.8 Other medical procedures as the cause of abnormal reaction of the patient, or of later complication, without mention of misadventure at the time of the procedure; N41.9 Inflammatory disease of prostate, unspecified; I95.89 Other hypotension; E86.0 Dehydration; E87.6 Hypokalemia; R31.29 Other microscopic hematuria; D69.59 Other secondary thrombocytopenia; T45.515A Adverse effect of anticoagulants, initial encounter; Y92.230 Patient room in hospital as the place of occurrence of the external cause; C61 Malignant neoplasm of prostate; I10 Essential (primary) hypertension; R51 Headache; R11.2 Nausea with vomiting, unspecified; K76.0 Fatty (change of) liver, not elsewhere classified; F10.11 Alcohol abuse, in remission; Z16.23 Resistance to quinolones and fluoroquinolones; Z16.11 Resistance to penicillins; Z79.899 Other long term (current) drug therapy; Z87.891 Personal history of nicotine dependence
CPT/HCPCS: 36415; 72193; 76700; 80048; 80053; 80074; 81001; 81003; 82550; 82553; 83605; 83690; 84484; 85025; 87040; 87077; 87086; 87181; 96365; 96366; 96375; 99284

== ENCOUNTER 2018-02-08 08:00 | Outpatient (CLI) | payer OTHER | END 2018-02-08 08:01 | LOC: LAB.R 08:00 | PROVIDERS: ATTEND Physician Assistant Medical | DX: N30.90 Cystitis, unspecified without hematuria (principal) | CPT/HCPCS: 87077; 87086; 87181 ==

== ENCOUNTER 2018-02-24 09:00 | Outpatient (CLI) | payer OTHER | END 2018-02-24 09:01 | disposition home or self-care (01) | LOC: LAB.R 09:00 | PROVIDERS: ATTEND Internal Medicine | DX: N41.0 Acute prostatitis (principal) | CPT/HCPCS: 87077; 87086; 87181 ==

== ENCOUNTER 2019-01-11 08:00 | Outpatient (CLI) | payer SELFPAY | END 2019-01-11 23:59 | LOC: LAB.F 08:00 | PROVIDERS: ATTEND Internal Medicine | DX: Z12.5 Encounter for screening for malignant neoplasm of prostate (principal) | CPT/HCPCS: 36415; 84153 ==